=== PATIENT | male | born 1950 | race Caucasian/White ===

== ENCOUNTER 2023-08-01 14:19 | Emergency (ER) | payer MEDICARE, SELFPAY ==
[2023-08-01] VITALS (7 sets, daily range): BP systolic 128–169; BP diastolic 81–95; PULSE 65–99; RESP 13–22; TEMP 36.6; O2SAT 92–97
--- NOTE | 2023-08-01 14:21 | ECG_ITS ---
[facility] [address] Test Date: 2023-08-01 Pat Name: Oscar Sanders Department: Room: Gender: M Rating Specialist: Ramez : 1950 Requested By: Lukasz Reese Order Number: [id number] Cindy MD: Jose Walker D.O. Measurements Intervals [place] Rate: 70 P: 7 LA: 171 QRS: 26 QRSD: 145 T: 26 QT: 378 QTc: 408 Interpretive Statements SINUS RHYTHM RIGHT BUNDLE BRANCH BLOCK BASELINE ARTIFACT- I, II, III, AVR, AVL, AVF ABNORMAL ECG No previous ECG available for comparison Electronically Signed On 08-02-2023 09:21:52 CDT by Jose Walker D.O.
--- NOTE | 2023-08-01 14:37 | ED.CHESTPAIN ---
HPI - Chest Pain General Chief Complaint: Chest Pain Stated Complaint: cp Time Seen by Provider: 08/01/23 14:21 History of Present Illness HPI narrative: 73-year-old male presenting to the emergency department for evaluation chest pain. Patient reports he went to bed approximately midnight last night and woke up around 130 with substernal chest pain. Patient states the pain has significantly improved. Patient describes the pain is more epigastric at this time. Patient denies the radiation of the pain to his neck back or arms. Patient has prior history coronary disease. Related Data Allergies Allergy/AdvReac Type Severity Reaction Status Date / Time No Known Drug Allergies Allergy Unknown Other Unverified 08/01/23 14:51 Cultivated Oat Pollen Allergy Unknown Rash Uncoded 08/01/23 14:51 Review of Systems Review of Systems: All systems reviewed & are unremarkable except as noted in HPI and below Exam Narrative: APPEARANCE: Well appearing, no pain, no distress, well-nourished. HEAD: normocephalic, atraumatic. EYES: PERRLA/EOMI, conjunctivae clear. NOSE: Normal no drainage EARS:TMS clear with good light reflex. THROAT: Pharynx clear, no exudate. NECK: Supple. No adenopathy, no masses. RESPIRATORY: Airway patent, respirations nonlabored. Clear to auscultation bilaterally, no rales, rhonchi, wheezing. CARDIOVASCULAR: Regular rate and rhythm without murmurs rubs or gallops. ABDOMINAL: Epigastric tenderness to palpation MUSCULOSKELETAL: Moves all extremities. Strength/ROM intact, No edema, No calf tenderness. NEURO: Alert. Cranial nerves II through XII intact. Grossly intact SKIN: Warm, dry. Normal Color Course Vital Signs Vital signs: Vital Signs Temperature 97.8 F 08/01/23 14:19 Pulse Rate 99 08/01/23 14:19 Respiratory Rate 22 H 08/01/23 14:19 Blood Pressure 141/94 H 08/01/23 14:19 Pulse Oximetry 97 08/01/23 14:19 Oxygen Delivery Room Air 08/01/23 14:19 Temperature 97.8 F 08/01/23 14:19 Pulse Rate 65 08/01/23 17:51 Respiratory Rate 14 08/01/23 17:51 Blood Pressure 169/95 H 08/01/23 17:51 Pulse Oximetry 92 08/01/23 17:51 Oxygen Delivery Room Air 08/01/23 14:19 MDM - Chest Pain MDM Narrative Medical decision making narrative: [age] old male presents to the emergency department for evaluation of epigastric pain. Patient is afebrile but does have a leukocytosis of 12.4. Stable hemoglobin of 16.4. No acute abnormalities on the patient's CMP patient had negative serial troponins. Patient had negative lipase. Patient reports he did have a large dinner last night and patient's symptoms started after lying down. With negative cardiac workup epigastric location the patient's pain GI etiology is more likely than ACS. Differential Diagnosis Differential diagnosis: Likely stable angina, atypical chest pain, costochondritis, chest pain and biliary colic Lab Data 08/01/23 14:30 08/01/23 14:30 Labs: Lab Results 08/01/23 08/01/23 08/01/23 Range/Units 14:30 14:32 17:32 WBC 12.4 H (4.5-10.0) K/mm3 RBC 5.32 (4.6-6.20) M/mm3 Hgb 16.4 (14.0-18.0) g/dL Hct 49.4 (42.0-52.0) % MCV 92.9 (80-100) fl MCH 30.8 (26-34) pg MCHC 33.2 (32-36) g/dl RDW 13.1 (11.5-14.5) % Plt Count 238 (150-375) k/mm3 MPV 10.6 H (7.4-10.4) fl Immature Gran % (Auto) 0.8 H (0-0.5) % Neut % (Auto) 83.0 H (45.5-73.1) % Lymph % (Auto) 11.1 L (18.3-44.2) % [place] % (Auto) 4.4 (2.6-8.5) % Eos % (Auto) 0.2 (0-4.4) % Baso % (Auto) 0.5 (0.2-1.2) % Lymph # (Auto) 1.38 (0.9-3.2) K/mm3 [place] # (Auto) 0.6 (0.1-0.6) K/mm3 Eos # (Auto) 0.0 (0-0.3) K/mm3 Baso # (Auto) 0.1 (0.0-0.1) K/mm3 Abs Immat Gran (auto) 0.10 H (0.00-0.031) K/mm3 Absolute Neuts (auto) 10.3 H (1.3-6.7) K/mm3 Absolute Nucleated RBC 0.000 (0.0-0.012) K/mm3 Nucleated RBC % 0.0 (0.0-0.2) % PT 13.0
[2023-08-01 14:43] LABS: Basophils Absolute Auto 0.1 K/mm3 (0.0-0.1); Basophils Percent Auto 0.5 % (0.2-1.2); Eosinophils Percent Auto 0.2 % (0-4.4); Hematocrit 49.4 % (42.0-52.0); Hemoglobin 16.4 g/dL (14.0-18.0); Immature Granulocyte Percent A 0.8 % (0-0.5); Lymphocytes Absolute Auto 1.38 K/mm3 (0.9-3.2); Lymphocytes Percent Auto 11.1 % (18.3-44.2); Mean Corpuscular HGB Conc 33.2 g/dl (32-36); Mean Corpuscular Hemoglobin 30.8 pg (26-34); Mean Corpuscular Volume 92.9 fl (80-100); Mean Platelet Volume 10.6 fl (7.4-10.4); Monocytes Absolute Auto 0.6 K/mm3 (0.1-0.6); Monocytes Percent Auto 4.4 % (2.6-8.5); Neutrophils Absolute Auto 10.3 K/mm3 (1.3-6.7); Platelet Count Result 238 k/mm3 (150-375); Red Blood Count 5.32 M/mm3 (4.6-6.20); Red Cell Distribution Width 13.1 % (11.5-14.5); White Blood Count 12.4 K/mm3 (4.5-10.0)
[2023-08-01 14:49] LABS: INR 0.9
[2023-08-01 14:50] LABS: Alanine Aminotransferase 25 U/L (6-50); Albumin Level 4.6 g/dL (3.5-5.1); Alkaline Phosphatase 56 U/L (38-126); Anion Gap 12 mmol/L (4-12); Aspartate Amino Transferase 30 U/L (17-59); Bilirubin,Total 0.8 mg/dL (0.2-1.3); Blood Urea Nitrogen 17 mg/dL (9-20); Calcium 10.9 mg/dL (8.4-10.2); Carbon Dioxide 27 mmol/L (22-30); Chloride 98 mmol/L (98-107); Estimated CRCL calculation 93 ml/min; Estimated Glomerular Filt Rate > 60; Glucose 163 mg/dL (65-110); Potassium 3.9 mmol/L (3.4-5.0); Sodium 137 mmol/L (137-145)
[2023-08-01 14:50] LABS: Partial Thromboplastin Time 30.2 Seconds (22.3-36.8)
[2023-08-01] MEDS: BELLADONNA ALK/PHENOB ELIX 10 ML, MAG HYDROX/ALUMINUM HYD/SIMETH 30 ML, LIDOCAINE HCL 2... PO (14:51)
[2023-08-01] MEDS: MORPHINE SULFATE (*CRX) 2 MG/ML INJ IV PUSH (14:51)
[2023-08-01 15:02] LABS: Troponin I < 0.012 ng/mL (0.000-0.034)
[2023-08-01 16:21] LABS: Lipase 72 U/L (23-300)
--- NOTE | 2023-08-01 16:30 | ECG_ITS ---
[facility] [address] Test Date: 2023-08-01 Pat Name: Oscar Sanders Department: Room: Gender: M Teletype Or Varitype Keyboard Operator: GUY : 1950 Requested By: Lukasz Reese Order Number: [id number] Cindy MD: Jose Walker D.O. Measurements Intervals [place] Rate: 68 P: 47 [place]: 154 QRS: 32 QRSD: 144 T: 32 QT: 389 QTc: 415 Interpretive Statements SINUS RHYTHM WITH SINUS ARRHYTHMIA RIGHT BUNDLE BRANCH BLOCK ABNORMAL ECG Compared to ECG 08/01/2023 16:29:11 No significant changes Electronically Signed On 08-02-2023 09:22:47 CDT by Jose Walker D.O.
[2023-08-01 18:06] LABS: Troponin I < 0.012 ng/mL (0.000-0.034)
== END 2023-08-01 18:39 | disposition home or self-care (01) ==
PROVIDERS: Emergency Provider Emergency Medicine; PCP Family Medicine
DX: R07.9 Chest pain, unspecified (principal); R10.13 Epigastric pain; I45.10 Unspecified right bundle-branch block
CPT/HCPCS: 36415; 80053; 83690; 84484; 85025; 85610; 85730; 93005; 96374; 99284; A9270; J2270

== ENCOUNTER 2024-02-21 06:57 | Day surgery (SDC) | payer MEDICARE, SELFPAY ==
[2024-01-03 07:17] VITALS: BMI 34.2
[2024-02-04 13:47] VITALS: BMI 35.2
--- NOTE | 2024-02-20 15:05 | WPDANESEPPF ---
Anes - Initial Pre Proc Eval Procedure: Operation Date: 02/21/24 09:00 Proposed Procedures p Screening Colonoscopy - Len De Leon MD Date/Time: 02/20/24 15:05 Surgeon: Len De Leon MD Pre Op Diagnosis: Screening Neoplasm of the Colon Patient Data Age: 73 Gender: M Height: 1.78 m Weight: 111.3 kg Allergies Allergy/AdvReac Type Severity Reaction Status Date / Time No Known Drug Allergies Allergy Unknown Other Verified 02/21/24 07:39 Cultivated Oat Pollen Allergy Unknown Rash Uncoded 02/21/24 07:39 Home Medications ?Medication ?Instructions ?Recorded ?Confirmed ?Type lisinopril 10 mg tablet 10 mg PO DAILY 12/11/23 02/21/24 History metformin 1,000 mg tablet 1,000 mg PO BID 12/11/23 02/21/24 History vitamin E (dl, acetate) 180 mg 180 mg PO WEEKLY 12/11/23 02/21/24 History (400 unit) capsule allopurinol 100 mg tablet 100 mg PO DAILY 02/04/24 02/21/24 History escitalopram oxalate 10 mg tablet 10 mg PO DAILY 02/04/24 02/21/24 History Patient hx anesthesia problems: none Family hx anesthesia problems: none Results Review: All pre-operative results and documents have been reviewed as part of the pre-operative evaluation. [facility] Past Medical History Medical History (Updated 02/20/24 @ 15:05 by Paulie Toledo DO) Diabetes type 2, controlled LAURIE (obstructive sleep apnea) Hyperlipidemia Hypertension Diarrhea Encounter for screening colonoscopy Social History Social History Smoking status: Former smoker Tobacco type: cigars Alcohol intake: current Drinks per week: 4 Alcohol use details: beer Substance use type: does not use Living arrangements: with family Spiritual care concerns: No Anes - Eval Final PreProcedure Day of Procedure 02/20/24 15:05 Patient weight: obese Heart: regular rate and rhythm Lungs: clear to auscultation Airway: Mallampati scale class II Neurological: alert and oriented Last oral intake: >/= 8 hours ASA classification: III Emergent: no Anesthetic plan: proceed Anesthesia type and monitoring: general GIVS and standard monitoring Results Review: All pre-operative results and documents have been reviewed as part of the pre-operative evaluation. Informed Consent: The patient's anesthetic plan and its attendant risks and benefits were discussed with the patient/family/POA. Questions were solicited and answers provided to the satisfaction of the patient/family/POA.
[2024-02-21 07:42] VITALS: BP 134/76; PULSE 86; RESP 18; TEMP 36.8; O2SAT 98
[2024-02-21 08:03] LABS: Glucose Point of Care 97 mg/dl (65-105)
[2024-02-21] MEDS: LACTATED RINGERS 1,000 ML 150 ML IV CONT (08:04)
--- NOTE | 2024-02-21 08:10 | P.HP_ITS ---
History of Present Illness History of Present Illness Consent: Risks, benefits, and alternatives have been discussed and questions answered. Patient agrees to proceed with procedure. Chief complaint: Screening Neoplasm of the Colon Narrative: Oscar Sanders is a 73 year old male presents for screening colonoscopy. Patient's current weight appetite and bowel movements are normal. Patient denies abdominal pain. He has had no bleeding. Family history is nonco ntributory. Previous colonoscopy 10 years ago was unremarkable. Review of Systems Review of Systems: All systems reviewed & are unremarkable except as noted in HPI and below PMFSH Past Medical History Medical History (Updated 02/20/24 @ 15:05 by Paulie Toledo, DO) Diabetes type 2, controlled LAURIE (obstructive sleep apnea) Hyperlipidemia Hypertension Diarrhea Encounter for screening colonoscopy Social History Social History Smoking status: Former smoker Tobacco type: cigars Alcohol intake: current Drinks per week: 4 Alcohol use details: beer Substance use type: does not use Living arrangements: with family Spiritual care concerns: No Meds Home Medications and Allergies Home Medications ?Medication ?Instructions ?Recorded ?Confirmed ?Type lisinopril 10 mg tablet 10 mg PO DAILY 12/11/23 02/21/24 History metformin 1,000 mg tablet 1,000 mg PO BID 12/11/23 02/21/24 History vitamin E (dl, acetate) 180 mg 180 mg PO WEEKLY 12/11/23 02/21/24 History (400 unit) capsule allopurinol 100 mg tablet 100 mg PO DAILY 02/04/24 02/21/24 History escitalopram oxalate 10 mg tablet 10 mg PO DAILY 02/04/24 02/21/24 History Allergies Allergy/AdvReac Type Severity Reaction Status Date / Time No Known Drug Allergies Allergy Unknown Other Verified 02/21/24 07:39 Cultivated Oat Pollen Allergy Unknown Rash Uncoded 02/21/24 07:39 Vital Signs Vital Signs - 24 hr 02/21/24 07:42 Temperature 98.3 F Pulse Rate 86 Respiratory Rate 18 Blood Pressure 134/76 Pulse Oximetry 98 Oxygen Delivery Room Air Exam Narrative: Physical exam reveals patient to be alert. Vital signs stable. VERONICA is unre markable. Patient is anicteric. Lungs are clear to auscultation and percussion heart is without murmur or extra sounds. Abdomen bowel sounds are present soft nontender with no organomegaly. Digital external rectal exam normal. Assessment and Plan Assessment and plan (1) Encounter for screening colonoscopy: Code(s): Z12.11 - Encounter for screening for malignant neoplasm of colon Status: Acute Assessment and Plan: Patient presents today for screening colonoscopy. He appears be at average risk for colon polyps. Further recommendations may be given after endoscopy.
[2024-02-21 09:08] VITALS: BP 107/60; PULSE 80; RESP 17; O2SAT 95
[2024-02-21 09:18] VITALS: BP 112/68; PULSE 82; RESP 18; O2SAT 97
[2024-02-21 09:28] VITALS: BP 113/85; PULSE 79; RESP 18; O2SAT 97
--- NOTE | 2024-02-21 10:44 | WPDANESPN ---
Anes - Prog Note Post-Op Date/Time: 02/21/24 10:44 Cardiovascular status: normal Respiratory status: normal Airway patency: baseline Mental status: baseline Post-Op hydration status: normal Vital Signs: Last Vital Signs Temp 36.8 C 02/21/24 07:42 Pulse 79 02/21/24 09:28 Resp 18 02/21/24 09:28 BP 113/85 02/21/24 09:28 Pulse Ox 97 02/21/24 09:28 O2 Del Method Room Air 02/21/24 09:28 Pain Score (VAS): 0 I/O: Intake & Output 02/20/24 02/21/24 02/21/24 23:59 07:59 15:59 Intake Total 250 Balance 250 02/21/24 07:58 POC Capillary Glucose 97 Post-procedural complaints: none Patient Feedback: Patient satisfied with anesthetic care. Other Findings: Patient vital signs back to baseline. Patient denies nausea and vomiting. Patient's pain under control. Patient OK for discharge.
== END 2024-02-21 09:45 | disposition home or self-care (01) ==
PROVIDERS: PCP Family Medicine; Visit Provider Internal Medicine Gastroenterology
PROC: 0DJD8ZZ Inspection of Lower Intestinal Tract, Via Natural or Artificial Opening Endoscopic (ICD-10-PCS; CPT 45378; principal; 2024-02-21 09:00)
DX: Z12.11 Encounter for screening for malignant neoplasm of colon (principal); K57.30 Diverticulosis of large intestine without perforation or abscess without bleeding; K64.8 Other hemorrhoids
CPT/HCPCS: G0121

== ENCOUNTER 2024-09-22 06:52 | Inpatient (IN) | payer MEDICARE, SELFPAY ==
[2024-09-22] VITALS (10 sets, daily range): BP systolic 145–153; BP diastolic 64–97; PULSE 64–91; RESP 16–20; TEMP 36.2–36.7; O2SAT 93–99; BMI 35.8
--- NOTE | 2024-09-22 | ECHO_ITS ---
Patient Info Name: Oscar Sanders Age: 74 years : 1950 Gender: Male Ht: 70 in Wt: 249 lbs BSA: 2.40 m2 HR: 68 bpm BP: 151 / 86 mmHg Technical Quality: Fair Exam Date: 09/22/2024 1:42 PM Patient Status: I Admit Date: 09/22/2024 Exam Type: CA echo dop color flow w con Complete two-dimensional, color flow and Doppler transthoracic echocardiogram is performed with contrast to opacify the left ventricle and to improve the deliniation of the left ventricle endocardial borders. Staff Referring Physician: Erika Stone Thermograph Operator: Janee Mar Attending Provider: Vania Prabhakar MD Contrast/Agitated Saline Contrast/Ag. Saline: Definity Amount: 2.00 ml Administered By: Janee Mar Existing IV Access: Yes IV Access Condition: patent with no signs of infiltration Summary 1. There is normal biventricular size and systolic function. 2. There are no significant valvular abnormalities. 3. The aortic root at the level of the sinus of Valsalva is dilated measuring 4.2 cm in diameter. Left Ventricle The left ventricle is normal in size and systolic function. The left ventricular ejection fraction is visually estimated to be 60-65%. There are no regional wall motion abnormalities. Right Ventricle The right ventricle is normal in size and systolic function. Left Atria The left atrium is normal size. Right Atria The right atrium is normal size. Atrial Septum The atrial septum is not well visualized. Aortic Valve The aortic valve is trileaflet and sclerotic. There is no aortic stenosis. There is no aortic regurgitation. Pulmonic Valve The pulmonic valve is not well visualized. Mitral Valve The mitral valve is normal. There is no mitral regurgitation. Tricuspid Valve The tricuspid valve is normal. There is trace tricuspid regurgitation. Pericardium/Pleural Pericardium is normal in appearance with no evidence for significant pericardial effusion. Inferior Vena Cava Inferior vena cava is not well visualized. Aorta The aortic root at the level of the sinus of Valsalva is dilated measuring 4.2 cm in diameter. Left Ventricular Outflow Tract Name Value Normal LVOT 2D LVOT Diameter 2.5 cm LVOT Doppler LVOT Peak Velocity 112 cm/s LVOT Peak Gradient 5 mmHg LVOT Mean Gradient 3 mmHg LVOT VTI 27 cm LVOT VTI/AV VTI Ratio 0.8 LVOT Stroke Volume 133 ml LVOT CO 8.0 l/min LVOT CI 3.3 l/min/m2 Pulmonic Valve Name Value Normal PV Doppler PV Peak Velocity 94 cm/s PV Peak Gradient 4 mmHg Mitral Valve Name Value Normal MV Diastolic Function MV E Peak Velocity 79 cm/s MV A Peak Velocity 108 cm/s MV E/A 0.7 MV Decel Time (PW) 308 ms MV Annular TDI MV E/e' (Septal) 7.0 MV E/e' (Lateral) 5.7 MV E/e' (Average) 6.4 Tricuspid Valve Name Value Normal TV Regurgitation Doppler TR Peak Velocity 149 cm/s TR Peak Gradient 9 mmHg Estimated PAP/RSVP RA Pressure 10 mmHg <=5 PA Systolic Pressure 19 mmHg <36 RV Systolic Pressure 19 mmHg <36 TV Annular TDI TV Lateral Clementina s' Velocity 13.9 cm/s >=9.5 Aortic Valve Name Value Normal AV Doppler AV Peak Velocity 144 cm/s AV Peak Gradient 8 mmHg AV Mean Gradient 5 mmHg AV VTI 32 cm AV Area (Cont Eq VTI) 4.1 cm2 >=3.0 AV Area (Cont Eq Luis) 3.8 cm2 AV DI (Luis) 0.78 AV Regurgitation 2D LVOT Area 4.9 cm2 Ventricles Name Value Normal LV Dimensions 2D/MM IVS Diastolic Thickness (2D) 1.0 cm 0.6-1.0 LVID Diastole (2D) 4.9 cm 4.2-5.8 LVIW Diastolic Thickness (2D) 1.0 cm 0.6-1.0 LVID Systole (2D) 3.3 cm 2.5-4.0 LVOT Diameter 2.5 cm LV Mass (2D Cubed) 176.05 g 88.00-224.00 LV Mass Index (2D Cubed) 73 g/m2 49-115 Relative Wall Thickness (2D) 0.40 <=0.42 LV Fractional Shortening/Ejection Fraction 2D/MM LV Fractional Shortening (2D) 33 % 25-43 LV EF (2D Teichholz) 61 % LV Diastolic Volume (4C MOD) 156 ml LV EF (4C MOD) 73 % LV Diastolic Volume (2C MOD) 123 ml LV EF (2C MOD) 70 % LV Diastolic Volume (BP MOD) 142 ml 62-150 LV Diastolic Volume Index (BP MOD) 59 ml/m2 34-74 LV Systolic Volume (BP MOD) 40 ml 21-61 LV Systolic Volume Index (BP MOD) 17 ml/m2 11-31 LV EF (BP MOD) 72 % 52-72 LV Diastolic Length (4C) 9.7 cm LV Systolic Length (4C) 7.6 cm LV Stroke Volume (4C MOD) 113 ml Atria Name Value Normal LA Dimensions LA Volume (4C A-L) 42 ml LA Volume (BP A-L) 44 ml RA Dimensions RA Systolic Major Theresa Length (4C) 5.1 cm 2.1-2.7 RA Area (4C) 16.2 cm2 <=18.0 Report Signatures
--- NOTE | ~2024-09-22 | US_ITS ---
US abdomen limited INDICATION: Cholelithiasis PROCEDURE: Realtime right upper abdominal ultrasound. COMPARISON: CT dated 11/25/2013 FINDINGS: The pancreas is normal without focal mass or pancreatic ductal dilation. Liver echotexture is increased, consistent with fatty infiltration. There is normal directional flow in the portal ve in. Incidental note is made of cysts in the right kidney. Gallbladder contains stones with gallbladder wall thickening. No pericholecystic fluid or biliary dil atation. Common bile duct measures 5 mm. No sonographic Calhoun's sign. IMPRESSION: 1: Cholelithiasis with gallbladder wall thickening. Consider cholecystitis. Clinically correlate. Reviewed, dictated and finalized at location A. IMPRESSION: 1: Cholelithiasis with gallbladder wall thickening. Consider cholecystitis. Cli nically correlate.
--- NOTE | ~2024-09-22 | CT_ITS ---
EXAMINATION: CTA chest PE protocol DATE: 09/22/2024 8:23 CDT INDICATION: Chest pain. Elevated d-dimer. Mild lower extremity edema. TECHNIQUE: Computed tomographic angiography (CTA) of the chest was performed with 100 mL Omnipaque-35 0 intravenous contrast. The dose-length product was 825.72 mGy-cm. Maximum intensity projection 3D-re constructions of the aorta and other arteries were constructed by the technologist on a separate work station. Automated exposure control and iterative reconstruction technique were employed. COMPARISON: None. FINDINGS: Study is technically adequate without evidence for pulmonary embolism. Elevated right diaph ragm. No significant pleural or pericardial effusion. No thoracic lymphadenopathy. There are gallston es. There is dependent atelectasis. There are groundglass opacities scattered in both lungs. No pneum othorax. Mild thoracic spondylosis. No thoracic lymphadenopathy. IMPRESSION: 1. No evidence for pulmonary embolism. 2: Patchy groundglass opacities of the lungs. Differential diagnosis includes atypical pneumonia, mil d edema and hypersensitivity pneumonitis. 3: Cholelithiasis. Reviewed, dictated and finalized at location A. IMPRESSION: 1. No evidence for pulmonary embolism. 2: Patchy groundglass opacities of the lungs. Differential diagnosis includes a typical pneumonia, mild edema and hypersensitivity pneumonitis. 3: Cholelithiasis.
--- NOTE | ~2024-09-22 | XR_ITS ---
EXAMINATION: XR chest 2V 09/22/2024 07:55 INDICATION: Chest pain PROCEDURE: 2 view chest COMPARISON: 11/26/2013 FINDINGS: There is unchanged right basilar atelectasis/scarring. No focal pneumonia or edema. The car diomediastinal silhouette is within normal limits. There are no pleural effusions. There is no pneu mothorax suspected. IMPRESSION: 1: NO ACUTE CARDIOPULMONARY DISEASE. Reviewed, dictated and finalized at location A.
--- NOTE | ~2024-09-22 | NM_ITS ---
EXAMINATION: NM meliza stress w perfusion DATE: 09/24/2024 9:40 CDT INDICATION: Chest pain TECHNIQUE: Rest images were obtained following intravenous administration of 9.9 mCi Tc99m tetrofosmi n (Myoview). The patient was infused intravenously with Lexiscan (regadenoson). Then, 31.4 mCi Tc99m tetrofosmin (Myoview) was administered intravenously, and stress images were obtained. Data was recon structed into short axis and horizontal and vertical long axis SPECT images. Gated SPECT images were also obtained. COMPARISON: None. FINDINGS: There is a small lateral ventricular wall perfusion abnormality which is partially reversib le.. There is no segmental wall motion abnormality. Left ventricular ejection fraction measures 78% . IMPRESSION: 1. Small lateral ventricular wall abnormality, partially reversible, consistent with small infarction with Impaired Coronary flow reserve.. 2. Normal left ventricular ejection fraction measuring 78%. Reviewed, dictated and finalized at location A.
--- OUTSIDE RECORDS SUMMARY | 2024-09-22 06:55 | XMS_ITS | Clinical Summary ---
Author Organization [facility] Address [address] [place] [id number] Care Team Providers Care Polysomnographic Technician Name Role Phone Unavailable Primary Care Provider Unavailabl e Social History Tobacco Use Types Packs/Day Years Used Date Smoking Tobacco: Never Assessed Sex and Gender Information Value Date Recorded Sex Assigned at Not on file Legal Sex Male 7:01 PM CDT Gender Identity Not on file Sexual Orientation Not on file Plan of Treatment Health Maintenance Due Date Last Done Comments Colorectal Cancer Screening Colonoscopy (10 Years) 1950 Hepatitis C 1967 DTaP, Tdap and Td Vaccines ( 1 - Tdap) 1968 Pneumococcal Vaccine: 50+ Ye ars (1 of 1 - PCV) 1999 Zoster Vaccines (1 of 2) 1999 COVID-19 Vaccine ( - 2023-2 5 season) 2023 RSV Immunization or 60+ Years (1 - 1-dose 75+ series) 2024 Meningococcal B Vaccine Aged Out No l onger eligible based on patient's age to complete this topic Meningococcal Vaccine Aged Out No nikki gilmer eligible based on patient's age to complete this topic RSV Immunizations Under 20 Months Aged Out No longer eligible based on patient's age to complete this topic
--- NOTE | 2024-09-22 06:56 | ECG_ITS ---
Test Date: 2024-09-22 07:00:49 Measurements Intervals [place] Rate: 67 P: 23 [place]: 170 QRS: 20 QRSD: 138 T: 43 QT: 408 QTc: 432 Interpretive Statements SINUS RHYTHM RIGHT BUNDLE BRANCH BLOCK [120+ ms QRS DURATION, UPRIGHT V1, 40+ ms S IN I/aVL/V4/V5/V6] Compared to ECG 08/01/2023 17:41:35 Sinus arrhythmia no longer present Electronically Signed On 09-22-2024 11:25:28 CDT by Daniel Jin M.D.
--- OUTSIDE RECORDS SUMMARY | 2024-09-22 07:24 | XMS_ITS | Clinical Summary ---
Author Organization [facility] Address [address] [place] [id number] Care Team Providers Care Inside Sales Account Executive Name Role Phone Unavailable Primary Care Provider [...]
--- NOTE | 2024-09-22 07:26 | ED_ITS ---
HPI - Chest Pain General Chief Complaint: Chest Pain Stated Complaint: chest pain Time Seen by Provider: 09/22/24 07:07 Source: patient Mode of arrival: ambulatory Limitations: no limitations History of Present Illness HPI narrative: Patient presents with report of right-sided chest started overnight. He is not really been able to sleep overnight. There was initial notation nausea however he states was not quite nauseated only that has a lot of pollen dust allergies in this causes him to spit up/cough up occasionally. Was is in though, he denies any recent coughing fevers, chills. He states that he gets short of breath due to his arthritis that causes some pain difficulty with climbing stairs although he does not note any acute changes to the in regards to his shortness of breath. The symptoms have otherwise never happened before and he has never seen a kettle operator, had an echo, or had a stress test. He states his pain is still approximately a 4/10 in severity and steady. Notes that the pain seemed to move across his upper chest but then remained there. Cardiac risk factors HTN: Yes, on lisinopril HLD: Patient denies and not on a statin (though HLD listed in PMH of EMR) DM: Patient states he is on metformin for borderline diabetes; listed in PMH of EMR as controlled T2DM Obese: Yes Smoker: quit >50 years ago Personal history IN/TIA/CVA: Patient states that his PCP thought he was on the cusp of having a stroke based on HTN at office once for which he was sent to the ED but no CVA identified Fam Hx IN in first degree relative <65yo: No Related Data Home Medications ?Medication ?Instructions ?Recorded ?Confirmed ?Last Taken ?Type lisinopril 10 mg tablet 10 mg PO DAILY 12/11/23 02/21/24 02/20/24 History metformin 1,000 mg tablet 1,000 mg PO BID 12/11/23 02/21/24 02/20/24 History vitamin E (dl, acetate) 180 mg 180 mg PO WEEKLY 12/11/23 02/21/24 02/20/24 History (400 unit) capsule allopurinol 100 mg tablet 100 mg PO DAILY 02/04/24 02/21/24 02/20/24 History escitalopram oxalate 10 mg tablet 10 mg PO DAILY 02/04/24 02/21/24 02/20/24 History Allergies Allergy/AdvReac Type Severity Reaction Status Date / Time No Known Drug Allergies Allergy Unknown Other Verified 09/22/24 07:25 Cultivated Oat Pollen Allergy Unknown Rash Uncoded 09/22/24 07:25 PMFSH Past Medical History Medical History Allergy to dust Pollen allergies Arthritis Diabetes type 2, controlled LAURIE (obstructive sleep apnea) Hyperlipidemia Hypertension Diarrhea Surgical History Surgical History History of colonoscopy (screening); Dr De Leon; 02/21/24 Social History Social History Social History: Smoking status: Former smoker Tobacco type: cigars Smoking end date: 09/02/74 Alcohol intake: current Drinks per week: 4 Alcohol use details: beer Substance use type: does not use Living arrangements: with family Additional living arrangements comments: Spiritual care concerns: No Exam 2 Narrative: GENERAL: Well-appearing, well-nourished, and in no acute distress. HEAD: Normocephalic, atraumatic. EYES: Non injected, non icteric ENT: Nares clear, no rhinorrhea or epistaxis. Gross auditory acuity intact. Nasal skin lesion. NECK: Supple. No meningismus. CHEST: Speaking in full sentences. No respiratory distress. Lungs clear to auscultation without appreciable crackles or wheezes. HEART: Regular rate and rhythm. Occasional mild bradycardia (55-59) ABDOMEN: Soft, nondistended. EXTREMITIES: Normal range of motion. Trace bilateral lower extremity edema. SKIN: Warm, dry, no rash. NEURO: No focal deficits. Alert and oriented. Answering questions. Following commands. Normal speech without aphasia or dysarthria. PSYCH: Congruent mood and affect. Course Vital Signs Vital signs: Vital Signs Temperature 98.0 F 09/22/24 07:19 Pulse Rate 71 09/22/24 07:19 Respiratory Rate 16 09/22/24 07:19 Blood Pressure 150/86 H 09/22/24 07:19 Pulse Oximetry 99 09/22/24 07:19 Oxygen Delivery Room Air 09/22/24 07:19 Temperature 98.0 F 09/22/24 07:19 Pulse Rate 71 09/22/24 09:08 Respiratory Rate 16 09/22/24 09:08 Blood Pressure 151/97 H 09/22/24 09:08 Pulse Oximetry 96 09/22/24 09:08 Oxygen Delivery Room Air 09/22/24 07:22 MDM - Chest Pain MDM Narrative Medical decision making narrative: Patient presents with chest pain starting overnight. In the emergency department he is afebrile vital signs notable for hypertension. HEART SCORE History 2 highly suspicious 1 moderately suspicious 0 slightly suspicious History score [address] depression/elevation not due to LBBB, LVH, or digoxin [address] depression but LBBB, LVH, nonspecific repolarization changes 0 normal ECG score 0 Age 2 >/= 65 1 45-64 0 <45 Age score 2 Risk factors (HTN, hypercholesterolemia, DM, obesity with BMI >30, current smoker or cessation </=3mo), positive fam hx with parent or sibling with CVD before age 65, atherosclerotic disease (prior IN, PCI/CABG, CVA/TIA, or peripheral arterial disease) 2 >/= 3 risk factors or history of atherosclerotic dz 1 - 1-2 risk factors 0 no known risk factors Risk factor score 2 (HTN, obesity, questionable DM and HLD) Initial Troponin 2 >3 times normal limit 1 1-3 times normal limit 0 less than or equal to normal limit Troponin score 0 Total HEART Score 4 Hemoglobin has dropped from previous in July of 2023 though hematocrit remains within normal limits. Mild hyperglycemia without an anion gap and not frankly acidotic. Pseudo hyponatremia as it corrects to normal (137) in the setting hyperglycemia. BNP 38, not suggestive of acute heart failure. CT scan without evidence of PE. There is patchy ground-glass opacities. Out of an abundance of precaution, will treat as pneumonia versus pneumonitis. First dose ceftriaxone and azithromycin ordered. Patient's repeat troponin is normal. However, given his heart score, I would recommend admission for further workup especially as he has never had a cardiac workup and does not have a kettle operator. Discussed with patient who verifies understanding and is in agreement. Discussed with sleeve ironer hospitalist Dr Prabhakar who concurs and accepts admission. Differential Diagnosis Differential diagnosis: Likely stable angina, unstable angina pectoris, atypical chest pain, st elevation myocardial infarction, costochondritis, chest pain, biliary colic and other (Acute heart failure, pneumonia, PE) Lab Data Attestation: I reviewed the patient's lab results. 09/22/24 07:24 09/22/24 07:24 Labs: Lab Results 09/22/24 09/22/24 09/22/24 Range/Units 07:24 07:24 09:50 WBC 9.5 (4.5-10.0) K/mm3 RBC 4.42 L (4.6-6.20) M/mm3 Hgb 13.8 L (14.0-18.0) g/dL Hct 42.1 (42.0-52.0) % MCV 95.2 (80-100) fl MCH 31.2 (26-34) pg MCHC 32.8 (32-36) g/dl RDW 13.4 (11.5-14.5) % Plt Count 225 (150-375) k/mm3 MPV 9.9 (7.4-10.4) fl Immature Gran % (Auto) 1.3 H (0-0.5) % Neut % (Auto) 69.1 (45.5-73.1) % Lymph % (Auto) 21.5 (18.3-44.2) % [place] % (Auto) 5.7 (2.6-8.5) % Eos % (Auto) 1.6 (0-4.4) % Baso % (Auto) 0.8 (0.2-1.2) % Lymph # (Auto) 2.05 (0.9-3.2) K/mm3 [place] # (Auto) 0.5 (0.1-0.6) K/mm3 Eos # (Auto) 0.2 (0-0.3) K/mm3 Baso # (Auto) 0.1 (0.0-0.1) K/mm3 Abs Immat Gran (auto) 0.12 H (0.00-0.031) K/mm3 Absolute Neuts (auto) 6.6 (1.3-6.7) K/mm3 Absolute Nucleated RBC 0.000 (0.0-0.012) K/mm3 Nucleated RBC % 0.0 (0.0-0.2) % PT 13.5 (11.1-14.7) Seconds INR 1.0 APTT 33.3 (22.3-36.8) Seconds D-Dimer 0.83 H (<0.48) ug/mL Sodium 136 L (137-145) mmol/L Potassium 4.6 (3.4-5.0) mmol/L Chloride 105 (98-107) mmol/L Carbon Dioxide 21 L (22-30) mmol/L Anion Gap 10 (4-12) mmol/L BUN 16 (9-20) mg/dL Creatinine 0.97 (0.7-1.3) mg/dL Estim Creat Clear Calc 78 ml/min Estimated GFR > 60 (59 - ) Glucose 157 H (65-110) mg/dL Calcium 9.9 (8.4-10.2) mg/dL Total Bilirubin 0.3 (0.2-1.3) mg/dL AST 33 (17-59) U/L ALT 29 (6-50) U/L Alkaline Phosphatase 51 (38-126) U/L Troponin I 0.012 < 0.012 (0.000-0.034) ng/mL NT-Pro-B Natriuret Pep 38 Cancelled (19.9-100) pg/mL Total Protein 7.4 (6.3-8.2) g/dL Albumin 4.0 (3.5-5.1) g/dL Lipase 128 (23-300) U/L Imaging Data Radiologist's impression: Impressions Chest X-Ray 09/22/24 07:56 IMPRESSION: 1: NO ACUTE CARDIOPULMONARY DISEASE. Chest CTA 09/22/24 08:23 IMPRESSION: 1. No evidence for pulmonary embolism. 2: Patchy groundglass opacities of the lungs. Differential diagnosis includes atypical pneumonia, mild edema and hypersensitivity pneumonitis. 3: Cholelithiasis. ECG Data EKG #1: Attestation: I personally reviewed and interpreted this ECG as follows: ECG completion date: 09/22/24 ECG completion time: 07:00 Prior ECG tracings: available for review (Right bundle-branch block was present on EKG from 08/01/2023) Interpretation: Normal sinus rhythm at a rate of 67 beats per minute. VA 1 7. QRS 138. QT/QTC 408/423. RBBB given QRS greater [id number]; RSR' M-shaped pattern in V1-V3; wide, slurred S wave in lateral leads (I, aVL, V5-6). Good R-wave progression across the precordial leads. No T-wave inversions. The appearance of V5 and V6 also similar as previous. EKG #2: Attestation: I personally reviewed and interpreted this ECG as follows: ECG completion date: 09/22/24 ECG completion time: 09:56 Interpretation: Normal sinus rhythm at a rate of 60 beats per minute. There is some R to R variation consistent with sinus arrhythmia. VA interval 164. QRS 145. QT/QTC 416/417. RBBB given QRS greater [id number]; RSR' M-shaped pattern in V1-V3; wide, slurred S wave in lateral leads (I, aVL, V5-6) Discharge Plan Discharge Clinical Impression: Chest pain, Hyperglycemia, Pseudohyponatremia, Cholelithiasis, Ground glass opacity present on imaging of lung Patient Disposition: Still a Patient Condition: Stable Patient Language: Citizen Of [place] Prescriptions: No Action lisinopril 10 mg tablet 10 mg PO DAILY metformin 1,000 mg tablet 1,000 mg PO BID vitamin E (dl, acetate) 180 mg (400 unit) capsule 180 mg PO WEEKLY allopurinol 100 mg tablet 100 mg PO DAILY escitalopram oxalate 10 mg tablet 10 mg PO DAILY Follow-up/Referrals: Claudio Holley MD [Primary Care Provider] -
--- NOTE | 2024-09-22 07:30 | PC.NURSE ---
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
[2024-09-22 07:32] LABS: Hematocrit 42.1 % (42.0-52.0); Hemoglobin 13.8 g/dL (14.0-18.0); Immature Granulocyte Percent A 1.3 % (0-0.5); Lymphocytes Absolute Auto 2.05 K/mm3 (0.9-3.2); Mean Corpuscular HGB Conc 32.8 g/dl (32-36); Mean Corpuscular Hemoglobin 31.2 pg (26-34); Mean Corpuscular Volume 95.2 fl (80-100); Nucleated Red Blood Cells Absolute Auto 0.000 K/mm3 (0.0-0.012); Nucleated Red Blood Cells Perc 0.0 % (0.0-0.2); Platelet Count Result 225 k/mm3 (150-375); Red Blood Count 4.42 M/mm3 (4.6-6.20); White Blood Count 9.5 K/mm3 (4.5-10.0)
[2024-09-22 07:46] LABS: INR 1.0; Prothrombin Time 13.5 Seconds (11.1-14.7)
[2024-09-22 07:47] LABS: Alanine Aminotransferase 29 U/L (6-50); Albumin Level 4.0 g/dL (3.5-5.1); Alkaline Phosphatase 51 U/L (38-126); Anion Gap 10 mmol/L (4-12); Aspartate Amino Transferase 33 U/L (17-59); Bilirubin,Total 0.3 mg/dL (0.2-1.3); Blood Urea Nitrogen 16 mg/dL (9-20); Calcium 9.9 mg/dL (8.4-10.2); Carbon Dioxide 21 mmol/L (22-30); Chloride 105 mmol/L (98-107); Estimated CRCL calculation 78 ml/min; Estimated Glomerular Filt Rate > 60; Glucose 157 mg/dL (65-110); Lipase 128 U/L (23-300); Partial Thromboplastin Time 33.3 Seconds (22.3-36.8); Potassium 4.6 mmol/L (3.4-5.0); Sodium 136 mmol/L (137-145); Total Protein 7.4 g/dL (6.3-8.2)
[2024-09-22 07:59] LABS: Troponin I 0.012 ng/mL (0.000-0.034)
[2024-09-22 08:43] LABS: NT Pro B Type Natriuretic Pept 38 pg/mL (19.9-100)
[2024-09-22] MEDS: AZITHROMYCIN 500 MG TABLET PO (09:06)
[2024-09-22] MEDS: cefTRIAXone 1 GM in SODIUM CHLORIDE 0.9% IV 50 ML 100 ML IVPB (09:06)
--- NOTE | 2024-09-22 09:46 | ECG_ITS ---
Test Date: 2024-09-22 09:56:35 Measurements Intervals [place] Rate: 60 P: 12 RI: 164 QRS: 56 QRSD: 145 T: 38 QT: 416 QTc: 417 Interpretive Statements SINUS RHYTHM WITH SINUS ARRHYTHMIA RIGHT BUNDLE BRANCH BLOCK [120+ ms QRS DURATION, UPRIGHT V1, 40+ ms S IN I/aVL/V4/V5/V6] Compared to ECG 09/22/2024 07:00:49 No significant changes Electronically Signed On 09-22-2024 11:27:41 CDT by Daniel Jin M.D.
[2024-09-22 10:28] LABS: Troponin I < 0.012 ng/mL (0.000-0.034)
--- NOTE | 2024-09-22 12:22 | P.CONCA_ITS ---
Assessment and Plan Assessment and plan (1) Chest pain: Code(s): R07.9 - Chest pain, unspecified <JANICE Tolentino - Last Filed: 09/22/24 13:21> Status: Acute <JANICE Tolentino - Last Filed: 09/22/24 13:21> Assessment and Plan: Atypical chest pain with negative troponin x 2 and EKG showing sinus rhythm with RBBB, no STTW abnormalities to suggest ischemia. Will check an echo and await results of third troponin. If he has normal LV function with no WMA, and third troponin negative, will plan for outpatient stress testing in the form of a nuclear stress test (arthritic knees, cannot walk on treadmill) for risk stratification as he does have risk factors for CAD. Offered the option of inpatient stress test but patient prefers outpatient stress if not necessary to remain admitted for this. <JANICE Tolentino - Last Filed: 09/22/24 13:21> Atypical chest pain with negative troponin x 2 and EKG showing sinus rhythm with RBBB, no STTW abnormalities to suggest ischemia. Will check an echo and await results of third troponin. If he has normal LV function with no WMA, and third troponin negative, will plan for outpatient stress testing in the form of a nuclear stress test (arthritic knees, cannot walk on treadmill) for risk stratification as he does have risk factors for CAD. Offered the option of inpatient stress test but patient prefers outpatient stress if not necessary to remain admitted for this. If patient remains hospitalized throughout tomorrow, will proceed with NST with meliza tomorrow <Daniel Jin MD - Last Filed: 09/22/24 14:47> (2) Hypertension: Code(s): I10 - Essential (primary) hypertension <JANICE Tolentino - Last Filed: 09/22/24 13:21> Status: Acute <JANICE Tolentino - Last Filed: 09/22/24 13:21> Assessment and Plan: Above goal. Increase lisinopril to 20mg daily. <JANICE Tolentino - Last Filed: 09/22/24 13:21> History of Present Illness History of Present Illness Consult date/time: 09/22/24 12:22 <JANICE Tolentino - Last Filed: 09/22/24 13:21> Requesting physician: Erika Stone MD <JANICE Tolentino - Last Filed: 09/22/24 13:21> Consult reason: chest pain <JANICE Tolentino - Last Filed: 09/22/24 13:21> Reason For Visit: cp,heart score 4,poss pna/pneumonitis <JANICE Tolentino - Last Filed: 09/22/24 13:21> Narrative: Oscar Sanders is a 74-year-old male with hypertension, hyperlipidemia, obstructive sleep apnea, type 2 diabetes. This is a patient who presents to the hospital with a chief complaint of right-sided chest pain. Cardiology is consulted for chest pain. Patient reports waking up last night about an hour after he fell asleep with right-sided chest discomfort. Patient describes the pain as a dull ache rated a 4/10 in intensity. Patient states that he took some Tylenol and went back to sleep. However, pain persisted when he woke up this morning and was diffuse across his chest, therefore he decided to come to the emergency department. He continues to have chest discomfort concentrated mostly on the right side of his chest. He denies any personal cardiac history and does not have a family history of cardiovascular disease. He denies any exertional chest pain, shortness of breath, palpitations, syncope, or presyncope. He is comfortable and not in any kind of distress at the time of my evaluation. < JANICE Tolentino - Last Filed: 09/22/24 13:21> Review of Systems 2 Review of Systems: All systems reviewed & are unremarkable except as noted in HPI and below <JANICE Tolentino - Last Filed: 09/22/24 13:21> [facility] Past Medical History Medical History: Medical History (Updated 09/22/24 @ 13:31 by Portia Mcdonald PA-C) Type 2 diabetes mellitus Gout Kidney stones Benign prostatic hyperplasia Gastroesophageal reflux disease Diverticulitis Obstructive sleep apnea does not use CPAP Allergy to dust Pollen allergies Arthritis Hyperlipidemia Hypertension <JANICE Tolentino - Last Filed: 09/22/24 13:21> Surgical History Surgical History: Surgical History History of colonoscopy (screening); Dr De Leon; 02/21/24 <JANICE Tolentino - Last Filed: 09/22/24 13:21> Family History Family History: Family History Other Unknown family medical history <JANICE Tolentino - Last Filed: 09/22/24 13:21> Social History Social History: Social History (Updated 09/22/24 @ 13:28 by Portia Mcdonald PA-C) Social History: Surrogate medical decision maker: Trina Sanders, spouse. Code status: Full code. Smoking status: Former smoker Tobacco type: cigars Smoking end date: 09/02/74 Alcohol intake: current Drinks per week: 5 Alcohol use details: beer Substance use: current Substance use type: does not use Do You Feel Safe in your Home?: Yes Lack of Transportation: No Lack of Food: Never True Current Housing: I Have Housing Concerned About Future Housing: No Difficulty Paying Gas/Electric Bills: No Difficulty Paying for Meds: No Currently Unemployed: No Education: Bachelor's Degree Difficulty w/ Childcare or Family Care: No Additional living arrangements comments: The patient lives with his in [place]. Spiritual care concerns: No <JANICE Tolentino - Last Filed: 09/22/24 13:21> Meds Home Medications and Allergies Home medications: Home Medications ?Medication ?Instructions ?Recorded ?Confirmed ?Type lisinopril 10 mg tablet 10 mg PO DAILY 12/11/23 09/22/24 History metformin 1,000 mg tablet 1,000 mg PO BID 12/11/23 09/22/24 History allopurinol 100 mg tablet 100 mg PO DAILY 02/04/24 09/22/24 History escitalopram oxalate 10 mg tablet 10 mg PO DAILY 02/04/24 09/22/24 History multivitamin with minerals-folic 1 tablet PO DAILY 09/22/24 09/22/24 History acid 80 mcg chewable tablet (Centrum Adult 50 Plus) <JANICE Tolentino - Last Filed: 09/22/24 13:21> Allergies/Adverse reactions: Allergies Allergy/AdvReac Type Severity Reaction Status Date / Time No Known Drug Allergies Allergy Unknown Other Verified 09/22/24 12:34 Cultivated Oat Pollen Allergy Unknown Rash Uncoded 09/22/24 07:25 <JANICE Tolentino - Last Filed: 09/22/24 13:21> Vital Signs Vital Signs - 24 hr 09/22/24 07:19 09/22/24 07:22 09/22/24 09:08 Temperature 36.7 C Pulse Rate 71 71 Respiratory Rate 16 16 Blood Pressure 150/86 H 151/97 H Pulse Oximetry 99 99 96 Oxygen Delivery Room Air Room Air 09/22/24 11:48 Temperature Pulse Rate 82 Respiratory Rate 18 Blood Pressure 145/64 H Pulse Oximetry 94 Oxygen Delivery <JANICE Tolentino - Last Filed: 09/22/24 13:21> Exam 2 Const: General: comfortable, no acute distress, alert and awake <JANICE Tolentino - Last Filed: 09/22/24 13:21> Orientation/consciousness: patient oriented x3 <JANICE Tolentino - Last Filed: 09/22/24 13:21> Other: Obese <JANICE Tolentino - Last Filed: 09/22/24 13:21> HENMT: Head: normal to inspection <JANICE Tolentino - Last Filed: 09/22/24 13:21> Eyes: General: appearance normal, both eyes and all related structures < JANICE Tolentino - Last Filed: 09/22/24 13:21> Pupils: Equal, round and reactive pupils present <JANICE Tolentino - Last Filed: 09/22/24 13:21> Neck: Neck: normal visual inspection, supple and no JVD <JANICE Tolentino - Last Filed: 09/22/24 13:21> Carotids: normal carotid upstroke and no bruits <JANICE Tolentino - Last Filed: 09/22/24 13:21> Resp: Effort & Inspection: normal respiratory effort <BRAYDEN Tolentino - Last Filed: 09/22/24 13:21> Auscultation: clear to auscultation bilaterally <JANICE Tolentino - Last Filed: 09/22/24 13:21> Cardio: Rate: regular rate <JANICE Tolentino - Last Filed: 09/22/24 13:21> Rhythm: regular rhythm <JANICE Tolentino - Last Filed: 09/22/24 13:21> Heart sounds: S1 normal heart sound present, S2 normal heart sound present and no murmurs <JANICE Tolentino - Last Filed: 09/22/24 13:21> GI: Auscultation: normal bowel sounds <JANICE Tolentino - Last Filed: 09/22/24 13:21> Skin: General skin exam: normal color <JANICE Tolentino - Last Filed: 09/22/24 13:21> Neuro: General: patient oriented x3 <JANICE Tolentino - Last Filed: 09/22/24 13:21> Cranial nerves: Yes Equal, round and reactive pupils present <JANICE Tolentino - Last Filed: 09/22/24 13:21> Extrem: General: normal to inspection <JANICE Tolentino - Last Filed: 09/22/24 13:21> Other: No edema <JANICE Tolentino - Last Filed: 09/22/24 13:21> Psych: Appearance: grossly normal <JANICE Tolentino - Last Filed: 09/22/24 13:21> Mental Status: mental status grossly normal <JANICE Tolentino - Last Filed: 09/22/24 13:21> Results Labs and Meds Result diagrams: 09/22/24 07:24 09/22/24 07:24 <JANICE Tolentino - Last Filed: 09/22/24 13:21> Lab results: Cardiac Enzymes 09/22/24 09/22/24 Range/Units 07:24 09:50 AST 33 (17-59) U/L Troponin I 0.012 < 0.012 (0.000-0.034) ng/mL Coagulation 09/22/24 Range/Units 07:24 PT 13.5 (11.1-14.7) Seconds APTT 33.3 (22.3-36.8) Seconds CBC 09/22/24 Range/Units 07:24 WBC 9.5 (4.5-10.0) K/mm3 RBC 4.42 L (4.6-6.20) M/mm3 Hgb 13.8 L (14.0-18.0) g/dL Hct 42.1 (42.0-52.0) % Plt Count 225 (150-375) k/mm3 Lymph # (Auto) 2.05 (0.9-3.2) K/mm3 [place] # (Auto) 0.5 (0.1-0.6) K/mm3 Eos # (Auto) 0.2 (0-0.3) K/mm3 Baso # (Auto) 0.1 (0.0-0.1) K/mm3 Comprehensive Metabolic Panel 09/22/24 Range/Units 07:24 Sodium 136 L (137-145) mmol/L Potassium 4.6 (3.4-5.0) mmol/L Chloride 105 (98-107) mmol/L Carbon Dioxide 21 L (22-30) mmol/L BUN 16 (9-20) mg/dL Creatinine 0.97 (0.7-1.3) mg/dL Glucose 157 H (65-110) mg/dL Calcium 9.9 (8.4-10.2) mg/dL AST 33 (17-59) U/L ALT 29 (6-50) U/L Alkaline Phosphatase 51 (38-126) U/L Total Protein 7.4 (6.3-8.2) g/dL Albumin 4.0 (3.5-5.1) g/dL Intake and Output 09/21/24 09/22/24 09/22/24 23:59 07:59 15:59 Intake Total 50 Balance 50 Intake: IV 50 cefTRIAXone 1 gm In Sodium 50 Chloride 0.9% IV 50 ml @ 100 mls/hr IVPB ONCE STA Rx#: [id number] Patient Weight 09/22/24 23:59 Weight 129 kg <JANICE Tolentino - Last Filed: 09/22/24 13:21>
--- NOTE | 2024-09-22 12:38 | ADMGEN ---
This patient, Oscar Sanders, was admitted to IMU Room 212-01. Patient/family oriented to hospital policies and general routines including ID bracelet, bed and alarms, visiting hours, pain management, procedures, bathroom and other care routines, personal items, smoking policy, room service/diet, and visiting hours. Information on how to activate the Rapid Response Team has been discussed. Patient/Family are encouraged to report perceived risks to care and to ask questions if they do not understand what they are told or what they should do.
--- NOTE | 2024-09-22 13:20 | P.HP_ITS ---
H&P: HPI History of Present Illness Date/Time: 09/22/24 14:00 Chief Complaint: Chest pain. Narrative: This is a very pleasant 74-year-old male with history of hypertension, hyperlipidemia, type 2 diabetes mellitus, and obstructive sleep apnea who presented to the emergency department complaints of chest pain. He ate a large meal last evening to consist of steak, twice baked potatoes, and creamed spinach. He went to bed full but was otherwise feeling okay. He does not sleep well as a rule and typically wakes up every 2 to 3 hours. After midnight he awoke and noticed that he had pain in the right side of his chest with some nausea as well. The pain is described as sore and tight in nature. After a period of time it began to radiate across the left side of his chest as well. Initially it seemed to be worse with deep inspiration but that has since resolved. He did not vomit but tells me that he ?spit up? a small amount of mucus which he attributes to postnasal drip from his allergies. His has not iced that his chronic cough (attributed to allergies) has been worse over the past 4 to 5 days but he has not noticed that it is more productive than baseline. He has never had similar symptoms. On occasion after a large meal he will get indigestion but the symptoms are not similar. At the time my evaluation however he perhaps has some discomfort diffusely throughout the upper abdomen, may be more so in the right upper quadrant but he cannot say for certain. He has no history of coronary artery disease. He denies exertional chest pain. He also denies syncope, near syncope, fever, chills, sweats, sore throat, productive cough, lower extremity edema, orthopnea, calf pain, dysphagia, and concerns for aspiration. No known history of gallstones, pancreatitis, or peptic ulcers. He denies sick contacts. In the ED: Blood pressure on arrival was 150/86; the rest of his vital signs were stable. Labs were significant for a D-dimer of 0.83, proBNP 38, troponin less than 0.012. EKG showed sinus rhythm with right bundle-branch block. Chest CTA was negative for pulmonary embolism but showed patchy ground-glass opacities (atypical pneumonia versus mild edema versus hypersensitivity pneumonitis) and cholelithiasis. He was given a dose of azithromycin ceftriaxone and is being admitted in this setting to rule out acute coronary syndrome. Review of Systems Review of Systems: 12 systems were reviewed and are negativ e except for as per HPI. [facility], LATER [facility] Past Medical History Medical History (Updated 09/22/24 @ 13:31 by Portia Mcdonald PA-C) Type 2 diabetes mellitus Gout Kidney stones Benign prostatic hyperplasia Gastroesophageal reflux disease Diverticulitis Obstructive sleep apnea does not use CPAP Allergy to dust Pollen allergies Arthritis Hyperlipidemia Hypertension Surgical History Surgical History History of colonoscopy (screening); Dr De Leon; 02/21/24 Family History Family History Other Unknown family medical history Social History Social History (Updated 09/22/24 @ 13:28 by Portia Mcdonald PA-C) Social History: Surrogate medical decision maker: Trina Sanders, spouse. Code status: Full code. Smoking status: Former smoker Tobacco type: cigars Smoking end date: 09/02/74 Alcohol intake: current Drinks per week: 5 Alcohol use details: beer Substance use: current Substance use type: does not use Do You Feel Safe in your Home?: Yes Lack of Transportation: No Lack of Food: Never True Current Housing: I Have Housing Concerned About Future Housing: No Difficulty Paying Gas/Electric Bills: No Difficulty Paying for Meds: No Currently Unemployed: No Education: Bachelor's Degree Difficulty w/ Childcare or Family Care: No Additional living arrangements comments: The patient lives with his in [place]. Spiritual care concerns: No Meds Home Medications and Allergies Home Medications ?Medication ?Instructions ?Recorded ?Confirmed ?Type lisinopril 10 mg tablet 10 mg PO DAILY 12/11/23 09/22/24 History metformin 1,000 mg tablet 1,000 mg PO BID 12/11/23 09/22/24 History allopurinol 100 mg tablet 100 mg PO DAILY 02/04/24 09/22/24 History escitalopram oxalate 10 mg tablet 10 mg PO DAILY 02/04/24 09/22/24 History multivitamin with minerals-folic 1 tablet PO DAILY 09/22/24 09/22/24 History acid 80 mcg chewable tablet (Centrum Adult 50 Plus) Allergies Allergy/AdvReac Type Severity Reaction Status Date / Time No Known Drug Allergies Allergy Unknown Other Verified 09/22/24 12:34 Cultivated Oat Pollen Allergy Unknown Rash Uncoded 09/22/24 07:25 Vital Signs Vital Signs - 24 hr 09/22/24 07:19 09/22/24 07:22 09/22/24 09:08 Temperature 98.0 F Pulse Rate 71 71 Respiratory Rate 16 16 Blood Pressure 150/86 H 151/97 H Pulse Oximetry 99 99 96 Oxygen Delivery Room Air Room Air 09/22/24 11:48 09/22/24 12:46 Temperature 97.1 F L Pulse Rate 82 68 Respiratory Rate 18 Blood Pressure 145/64 H 151/86 H Pulse Oximetry 94 97 Oxygen Delivery Exam Narrative: General: Well-developed, nontoxic-appearing male in the semi-Stover position in bed in no acute distress. Weight: 113.3 kg. BMI: 35.8. HEENT: PERRL, EOMI. Sclera anicteric. Oral mucosa moist. Neck: Supple. Respiratory: Lungs are clear to auscultation bilaterally. Cardiovascular: Regular rate and rhythm with S1-S2. Chest: No tenderness to palpation over the chest wall. Gastrointestinal: Abdomen is soft, obese, and nondistended with positive bowel sounds. He is perhaps mildly tender to palpation throughout the upper abdomen. No guarding or rebound tenderness. Negative Calhoun sign. Skin: Warm and dry. No rash or lesions on limited exam. Extremities: No cyanosis, clubbing, or significant edema. Radial and pedal pulses intact. Neurological: Alert. Cranial nerves 2-12 are grossly intact. No gross focal deficits to casual conversation. Psychiatric: Pleasant and cooperative with normal mood and affect. Judgment and insight intact. H&P: Results Labs Labs: Short CBC 09/22/24 Range/Units 07:24 WBC 9.5 (4.5-10.0) K/mm3 Hgb 13.8 L (14.0-18.0) g/dL Hct 42.1 (42.0-52.0) % Plt Count 225 (150-375) k/mm3 [facility] 09/22/24 07:24 Sodium 136 L Potassium 4.6 Chloride 105 Carbon Dioxide 21 L BUN 16 Creatinine 0.97 Glucose 157 H Calcium 9.9 Cardiac Enzymes 09/22/24 09/22/24 Range/Units 07:24 09:50 Troponin I 0.012 < 0.012 (0.000-0.034) ng/mL Liver Function 09/22/24 Range/Units 07:24 Total Bilirubin 0.3 (0.2-1.3) mg/dL AST 33 (17-59) U/L ALT 29 (6-50) U/L Alkaline Phosphatase 51 (38-126) U/L Albumin 4.0 (3.5-5.1) g/dL Imaging Chest X-Ray 09/22/24 07:56 IMPRESSION: 1: NO ACUTE CARDIOPULMONARY DISEASE. Chest CTA 09/22/24 08:23 IMPRESSION: 1. No evidence for pulmonary embolism. 2: Patchy groundglass opacities of the lungs. Differential diagnosis includes atypical pneumonia, mild edema and hypersensitivity pneumonitis. 3: Cholelithiasis. Assessment and Plan Assessment and plan (1) Chest pain: Code(s): R07.9 - Chest pain, unspecified Status: Acute (2) Cholelithiasis: Code(s): K80.20 - Calculus of gallbladder without cholecystitis without obstruction Status: Acute (3) Ground glass opacity present on imaging of lung: Code(s): R91.8 - Other nonspecific abnormal finding of lung field Status: Acute (4) Hypertension: Code(s): I10 - Essential (primary) hypertension Status: Acute (5) Type 2 diabetes mellitus: Code(s): E11.9 - Type 2 diabetes mellitus without complications Status: Acute Plan The patient presented to the emergency department for evaluation of right anterior chest pain which occurred sometime overnight as detailed in HPI. Labs, imaging, EKG, and all reports were personally reviewed. This is atypical for cardiac related pain however he has risk factors for coronary artery disease and cardiology has been consulted for their opinion. Troponins have thus far been negative. He does not have reproducible tenderness over the chest wall but does have perhaps mild tenderness throughout the upper abdomen. A right upper quadrant ultrasound has been ordered to evaluate the gallbladder given findings of cholelithiasis on CT scan. Ground-glass opacities were also seen on CT scan which could indicate pneumonia and with his increasing cough we will continue with antibiotics for now although he has been afebrile and has a normal WBC count. Blood pressures have been running in the 140s 150s systolic and will be monitored closely for now; continue lisinopril 20 mg daily. Hold metformin as he received IV contrast. Initiate sliding scale insulin, Accu-Cheks, and hypoglycemic protocol. The rest of his home medications will be reviewed and resumed as appropriate. Findings and treatment plan were discussed with the patient. Questions were solicited and answered to satisfaction. The patient's medical management will be taken over by the hospitalist team in a.m. Quality VTE Prophylaxis VTE prophylaxis: pharmacologic ordered The patient has been admitted under observation status. Hospitalist MIPS Advance Care Plan I have confirmed that the patient's Advanced Care Plan is present, code status is documented, or surrogate decision maker is listed in patient medical record.: Yes Medication Reconciliation I have utilized all available resources to obtain, update and review the patients current medications (includes all prescriptions, OTC, herbals, canna bis, and nutritional supplements).: Yes
[2024-09-22 13:31] LABS: Troponin I < 0.012 ng/mL (0.000-0.034)
[2024-09-22] MEDS: ESCITALOPRAM OXALATE 10 MG TABLET PO (14:22)
[2024-09-22] MEDS: ENOXAPARIN 40 MG/0.4 ML SYRINGE SUB-Q (14:22)
[2024-09-22] MEDS: PERFLUTREN LIPID MICROSPHERES 1.5 ML VIAL DILUTED TO 10 ML TOTAL VOLUME IV PUSH (14:30)
[2024-09-22 14:34] LABS: Hemoglobin A1C 6.3 % (<5.7)
--- NOTE | 2024-09-22 14:39 | IVDEFINITY ---
Prior to administration of IV Definity the patient was educated on the risks and benefits of the imaging enhancing agent including potential adverse side effects. The patient verbalized understanding. Allergies were verified. No exclusion criteria were identified and at least one of the following inclusion criteria were met: 1) physician request, 2) patient technically difficult to image (per the [place] [employer] guidelines of two or more segments not discernable within the apical view), or 3) questionable left ventricular function. ?
[2024-09-22] MEDS: MULTIVITS W-FE,MIN CHEWABLE TABLET 1 TABLET PO (14:53)
[2024-09-23] VITALS (16 sets, daily range): BP systolic 125–142; BP diastolic 71–75; PULSE 71–106; RESP 14–20; TEMP 36.4–37.3; O2SAT 92–96
--- NOTE | 2024-09-23 | EST_ITS ---
Patient Info Name: Oscar Sanders Age: 74 years : 1950 Gender: Male Ht: 70 in Wt: 146 lbs BSA: 1.80 m2 Exam Date: 09/23/2024 10:32 AM Patient Status: I Admit Date: 09/23/2024 Exam Type: CA stress meliza w NM A regadenoson stress test was performed. Staff Referring Physician: Eloise Aden Attending Provider: Vania Prabhakar MD Exercise Technologist: Margie Avila Exercise Physician: Kristal Victor MD Summary 1. No abnormal ST/T wave changes diagnostic of ischemia with Lexiscan. 2. Occasional PVCs. 3. Please correlate with nuclear medicine images, reported separately. 4. Stress test supervised by Kristal Victor MD and interpreted by Kristal Victor MD. Protocol: Lexiscan Stress ECG Details Stage: REST Duration (min): 1 min : 36 sec HR (bpm): 83 SBP (mmHg): 131 DBP (mmHg): 85 Stage: REST Duration (min): 17 min : 15 sec HR (bpm): 84 SBP (mmHg): 131 DBP (mmHg): 85 Stage: STAGE 1 Duration (min): 0 min : 59 sec HR (bpm): 102 SBP (mmHg): 113 DBP (mmHg): 76 Stage: RECOVERY Duration (min): 1 min : 0 sec HR (bpm): 101 SBP (mmHg): 108 DBP (mmHg): 74 Stage: RECOVERY Duration (min): 2 min : 0 sec HR (bpm): 99 SBP (mmHg): 108 DBP (mmHg): 74 Stage: RECOVERY Duration (min): 3 min : 0 sec HR (bpm): 96 SBP (mmHg): 109 DBP (mmHg): 71 Stage: RECOVERY Duration (min): 4 min : 0 sec HR (bpm): 88 SBP (mmHg): 109 DBP (mmHg): 71 Stage: RECOVERY Duration (min): 5 min : 0 sec HR (bpm): 94 SBP (mmHg): 113 DBP (mmHg): 72 Stage: RECOVERY Duration (min): 6 min : 0 sec HR (bpm): 88 SBP (mmHg): 113 DBP (mmHg): 72 Stage: RECOVERY Duration (min): 7 min : 0 sec HR (bpm): 93 SBP (mmHg): 112 DBP (mmHg): 69 Stage: RECOVERY Duration (min): 7 min : 49 sec HR (bpm): 90 SBP (mmHg): 112 DBP (mmHg): 69 Rest HR: 84 bpm Peak HR: 103 bpm Rest Sys BP: 131 mmHg Peak Sys BP: 113 mmHg Max Pred HR: 145 bpm % Max Pred HR: 71 % Target HR: 123 bpm Max RPP: 11,639 bpm*mmHg Total Time: 1 min : 0 sec Rest Santiago BP: 85 mmHg Peak Santiago BP: 76 mmHg Total Dose: 0.4 mg Resting ECG Sinus rhythm, RBBB. Stress ECG No abnormal ST/T wave changes diagnostic of ischemia with Lexiscan. Arrhythmias Occasional PVCs. Report Signatures
[2024-09-23 04:15] LABS: Hematocrit 41.0 % (42.0-52.0); Hemoglobin 13.4 g/dL (14.0-18.0); Mean Corpuscular HGB Conc 32.7 g/dl (32-36); Mean Corpuscular Hemoglobin 31.0 pg (26-34); Mean Corpuscular Volume 94.9 fl (80-100); Platelet Count Result 205 k/mm3 (150-375); Red Blood Count 4.32 M/mm3 (4.6-6.20); White Blood Count 12.0 K/mm3 (4.5-10.0)
[2024-09-23 04:47] LABS: Procalcitonin 0.1 ng/mL
[2024-09-23 04:49] LABS: Anion Gap 10 mmol/L (4-12); Blood Urea Nitrogen 11 mg/dL (9-20); Calcium 9.6 mg/dL (8.4-10.2); Carbon Dioxide 23 mmol/L (22-30); Chloride 102 mmol/L (98-107); Cholesterol 138 mg/dL (0-200); Estimated CRCL calculation 78 ml/min; Estimated Glomerular Filt Rate > 60; Glucose 145 mg/dL (65-110); HDL Direct 29 mg/dL; Magnesium 1.8 mg/dL (1.6-2.3); Potassium 4.0 mmol/L (3.4-5.0); Sodium 135 mmol/L (137-145); Triglycerides 347 mg/dL (<150)
--- NOTE | 2024-09-23 08:24 | P.PNIM_ITS ---
Progress Note: A&P Assessment and Plan (1) Chest pain: Code(s): R07.9 - Chest pain, unspecified Status: Acute Assessment and Plan: * Monitor vital signs, I&Os, chest pain, shortness of breath and patient is a fa ll risk * Monitor PTT, serial troponins, Serum electrolytes, and cbc * Keep serum potassium >4 and keep magnesium >2 * Cardiology consulted, appreciate assistance and recommendations * Nitro drip, titrate as needed per ACS protocol * Heparin drip per ACS protocol * Monitor for bloody bowel movements,chest pain,SOB or dizziness/lightheadedness * Obtain an Echocardiogram * Consider adding atorvastatin 40 mg daily, aspirin 81 mg daily and metoprolol tartrate 25 mg p.o. b.i.d. * Diet: NPO until evaluated by Cardiology * DVT Px: Lovenox * NST today (2) Cholelithiasis: Code(s): K80.20 - Calculus of gallbladder without cholecystitis without obstruction Status: Acute Assessment and Plan: * Monitor vital signs, I and O's, check stool output, neuro status and patient is a fall risk * Monitor serum electrolytes and CBC * Monitor lactic acid * IV pain management * Gentle IV fluid resuscitation * Right upper quadrant ultrasound (3) Ground glass opacity present on imaging of lung: Code(s): R91.8 - Other nonspecific abnormal finding of lung field Status: Acute Assessment and Plan: * CXR: NO ACUTE CARDIOPULMONARY DISEASE. * Chest CT: Patchy groundglass opacities of the lungs. Differential diagnosis includes atypical pneumonia, mild edema and hypersensitivity pneumonitis. * started on CAP tx: azithromycin & ceftriaxone * Viral PCR: Pending * no supplemental O2 requirement * trend labs * Monitor vital signs, I&Os, neuro status and patient is a fall risk * Follow WBC, serum electrolytes, temperature curves and cultures * Send sputum cultures * Gentle IV fluid resuscitation (4) Hypertension: Code(s): I10 - Essential (primary) hypertension Status: Acute Assessment and Plan: * Patient's blood pressure was reviewed on 09/23 * Blood pressure remains well controlled. * Will continue current medications. (5) Type 2 diabetes mellitus: Code(s): E11.9 - Type 2 diabetes mellitus without complications Status: Acute Assessment and Plan: * Hypoglycemia protocol * POC blood glucose ACHS * Home medication -metformin, on hold * Correct regimen ordered - low dose TIDWM and HS A1C 6.3% (09/22/2024) Subjective Date/time seen: 09/23/24 08:24 Interval history: 74-year-old male with history of hypertension, hyperlipidemia, type 2 diabetes mellitus, and obstructive sleep apnea who presented to the emergency department complaints of chest pain. 09/23/2024 Patient sitting comfortably in bed at time of exam. Denies any chest pain, shortness of breath, n/v, or abd pain at this time. General surgery consulted regarding presence of gallstones in the gallbladder without evidence of cholecystitis. No surgical intervention indicated at this time. Will proceed with stress test today. Continue treating for pneumonia but lack of fever, leukocytosis or presence of SOB/cough puts pneumonia on lower clinical suspicion. Pt otherwise stable and has no concerns or complaints. Review of Systems Review of Systems: 12 systems were reviewed and are negativ e except for as per HPI. Exam Narrative: General: Well-developed, nontoxic-appearing male in the semi-Stover position in bed in no acute distress. Weight: 113.3 kg. BMI: 35.8. HEENT: PERRL, EOMI. Sclera anicteric. Oral mucosa moist. Neck: Supple. Respiratory: Lungs are clear to auscultation bilaterally. Cardiovascular: Regular rate and rhythm with S1-S2. Chest: No tenderness to palpation over the chest wall. Gastrointestinal: Abdomen is soft, obese, and nondistended with positive bowel sounds. He is perhaps mildly tender to palpation throughout the upper abdomen. No guarding or rebound tenderness. Negative Calhoun sign. Skin: Warm and dry. No rash or lesions on limited exam. Extremities: No cyanosis, clubbing, or significant edema. Radial and pedal pulses intact. Neurological: Alert. Cranial nerves 2-12 are grossly intact. No gross focal deficits to casual conversation. Psychiatric: Pleasant and cooperative with normal mood and affect. Judgment and insight intact. Objective Data Vital Signs Vital Signs: Vital Signs - 24 hr 09/22/24 09:08 09/22/24 11:48 09/22/24 12:33 Temperature Pulse Rate 71 82 69 Respiratory Rate 16 18 Blood Pressure 151/97 H 145/64 H Pulse Oximetry 96 94 Oxygen Delivery 09/22/24 12:46 09/22/24 13:21 09/22/24 14:00 Temperature 97.1 F L Pulse Rate 68 67 Respiratory Rate Blood Pressure 151/86 H Pulse Oximetry 97 Oxygen Delivery Room Air 09/22/24 16:00 09/22/24 16:00 09/22/24 16:00 Temperature 98.1 F Pulse Rate 64 71 Respiratory Rate 20 Blood Pressure 150/84 H Pulse Oximetry 94 Oxygen Delivery Room Air 09/22/24 18:00 09/22/24 20:00 09/22/24 20:00 Temperature 97.6 F Pulse Rate 68 91 Respiratory Rate 16 Blood Pressure 153/79 H Pulse Oximetry 93 Oxygen Delivery Room Air 09/22/24 20:00 09/22/24 23:48 09/23/24 00:00 Temperature 99.2 F Pulse Rate 68 87 Respiratory Rate 18 Blood Pressure 133/75 Pulse Oximetry 96 Oxygen Delivery Room Air 09/23/24 00:00 09/23/24 04:00 09/23/24 04:00 Temperature Pulse Rate 76 71 Respiratory Rate Blood Pressure Pulse Oximetry Oxygen Delivery Room Air 09/23/24 04:00 09/23/24 07:29 Temperature 98.2 F 97.9 F Pulse Rate 77 79 Respiratory Rate 18 14 Blood Pressure 142/75 H 133/71 Pulse Oximetry 95 93 Oxygen Delivery Intake/Output Intake/Output: Intake & Output 09/20/24 09/21/24 09/22/24 09/23/24 23:59 23:59 23:59 23:59 Intake Total 530 120 Output Total 400 225 Balance 130 -105 Meds/Results Medications: Active Medications Generic Name Dose Route Start Last Admin Trade Name Freq PRN Reason Stop Dose Admin Acetaminophen 650 mg 09/22/24 10:51 Acetaminophen 325 Mg Tablet PO Q4H PRN Mild Pain (1-3) or Fever Allopurinol 100 mg 09/22/24 13:50 09/22/24 14:22 Allopurinol 100 Mg Tablet PO 100 mg DAILY LUIS ENRIQUE Administration Azithromycin 250 mg 09/23/24 09:00 Azithromycin 250 Mg Tablet PO 09/26/24 09:01 DAILY LUIS ENRIQUE Dextrose 12.5 gm 09/22/24 13:29 Dextrose 50% 25 Gm/50 Ml Syringe IV PUSH PRN PRN Hypoglycemia Protocol Enoxaparin Sodium 40 mg 09/22/24 13:45 09/22/24 14:22 Enoxaparin 40 Mg/0.4 Ml Syringe SUB-Q 40 mg DAILY LUIS ENRIQUE Administration Escitalopram Oxalate 10 mg 09/22/24 13:50 09/22/24 14:22 Escitalopram Oxalate 10 Mg Tablet PO 10 mg DAILY LUIS ENRIQUE Administration Glucagon 1 mg 09/22/24 13:29 Glucagon For Inj 1 Mg Vial IM PRN PRN Hypoglycemia Protocol Glucose 15 gm 09/22/24 13:29 Glucose Oral Gel 15 Gm Of Glucse In 37.5 Gm Tube PO PRN PRN Hypoglycemia Protocol Dextrose 1,000 mls @ 100 mls/hr 09/22/24 13:29 Dextrose 5% 1,000 Ml IVPB PRN PRN Hypoglycemia Protocol Ceftriaxone Sodium 1 gm/ 50 mls @ 100 mls/hr 09/23/24 09:00 Sodium Chloride IVPB DAILY LUIS ENRIQUE Insulin Aspart 2 - 5 units 09/22/24 17:00 09/23/24 07:47 Insulin Aspart (*Bkc) 100 Units/Ml SUB-Q Not Given TIDWM [facility] Protocol Insulin Aspart 1 - 2 units 09/22/24 21:00 09/22/24 20:27 Insulin Aspart (*Bkc) 100 Units/Ml SUB-Q Not Given HS [facility] Protocol Lisinopril 20 mg 09/22/24 13:45 09/22/24 14:22 Lisinopril 20 Mg Tablet PO 20 mg DAILY LUIS ENRIQUE Administration Multivitamins/Minerals 1 tablet 09/22/24 13:50 09/22/24 14:53 Multivits W-Fe,Min Chewable Tablet PO 1 tablet DAILY LUIS ENRIQUE Administration Ondansetron HCl 4 mg 09/22/24 10:51 Ondansetron Inj 4 Mg/2 Ml Vial IV PUSH Q4H PRN Nausea Radiology Results: ITS Impressions Chest X-Ray 09/22/24 07:56 IMPRESSION: 1: NO ACUTE CARDIOPULMONARY DISEASE. Chest CTA 09/22/24 08:23 IMPRESSION: 1. No evidence for pulmonary embolism. 2: Patchy groundglass opacities of the lungs. Differential diagnosis includes atypical pneumonia, mild edema and hypersensitivity pneumonitis. 3: Cholelithiasis. Labs Labs: Laboratory Results - last 24 hr 09/22/24 09/22/24 09/22/24 07:24 09:50 12:57 WBC RBC Hgb Hct MCV MCH MCHC RDW Plt Count MPV Sodium Potassium Chloride Carbon Dioxide Anion Gap BUN Creatinine Estim Creat Clear Calc Estimated GFR Glucose POC Capillary Glucose Hemoglobin A1c 6.3 H Calcium Magnesium Troponin I < 0.012 < 0.012 NT-Pro-B Natriuret Pep 38 Triglycerides Cholesterol LDL Cholesterol Direct HDL Direct Procalcitonin 09/22/24 09/22/24 09/23/24 18:06 19:46 03:55 WBC 12.0 H RBC 4.32 L Hgb 13.4 L Hct 41.0 L MCV 94.9 MCH 31.0 MCHC 32.7 RDW 13.3 Plt Count 205 MPV 10.3 Sodium 135 L Potassium 4.0 Chloride 102 Carbon Dioxide 23 Anion Gap 10 BUN 11 D Creatinine 0.90 Estim Creat Clear Calc 78 Estimated GFR > 60 Glucose 145 H POC Capillary Glucose 145 H 150 H Hemoglobin A1c Calcium 9.6 Magnesium 1.8 Troponin I NT-Pro-B Natriuret Pep Triglycerides 347 H Cholesterol 138 LDL Cholesterol Direct 47 HDL Direct 29 Procalcitonin 0.1 09/23/24 07:30 WBC RBC Hgb Hct MCV MCH MCHC RDW Plt Count MPV Sodium Potassium Chloride Carbon Dioxide Anion Gap BUN Creatinine Estim Creat Clear Calc Estimated GFR Glucose POC Capillary Glucose 142 H Hemoglobin A1c Calcium Magnesium Troponin I NT-Pro-B Natriuret Pep Triglycerides Cholesterol LDL Cholesterol Direct HDL Direct Procalcitonin Quality VTE Prophylaxis VTE prophylaxis: pharmacologic ordered
[2024-09-23] MEDS: cefTRIAXone 1 GM in SODIUM CHLORIDE 0.9% IV 50 ML 100 ML IVPB (09:00)
[2024-09-23] MEDS: AZITHROMYCIN 250 MG TABLET PO (09:00)
[2024-09-23 09:53] LABS: Influenza A QL RT-PCR Negative (Negative); Influenza B QL RT-PCR Negative (Negative); RSV RNA, RT-PCR Negative (Negative); SARS-CoV-2 RNA PCR Negative (Negative)
[2024-09-23] MEDS: ESCITALOPRAM OXALATE 10 MG TABLET PO (10:58)
[2024-09-23] MEDS: MULTIVITS W-FE,MIN CHEWABLE TABLET 1 TABLET PO (10:58)
--- NOTE | 2024-09-23 11:04 | P.CONGS_ITS ---
Assessment and Plan Assessment and plan (1) Cholelithiasis: Code(s): K80.20 - Calculus of gallbladder without cholecystitis without obstruction Status: Acute Assessment and Plan: Patient presented to the ED last night complaining of right-sided chest pain. He did have a dinner consisting of chicken thighs, twice make potatoes, and cauliflower. He was able to fall sleep but awoke an hour later with the pain in his chest. Cardiac workup fairly benign, aside from right bundle-branch block and dilated aortic root demonstrated on echo. Patient has never had an episode of pain like this. He does not complain of any pain today. Abdominal exam benign. No immediate surgical intervention necessary. Patient voiced that he did not feel as though his symptoms were severe enough today to want to undergo surgery at this time. Discussed options with patient regarding outpatient treatment of cholecystitis if symptoms persist. (2) Type 2 diabetes mellitus: Code(s): E11.9 - Type 2 diabetes mellitus without complications Status: Acute Assessment and Plan: Continue management per hospitalist recs. Plan Discussed patient's case and plan of care with Dr. Iyer. History of Present Illness Consult details Consult date: 09/23/24 Reason for consult: other (Cholecystitis) Requesting physician: Joes Dubois PA-C Narrative: Patient is a 74-year-old male with history of hypertension, hyperlipidemia, type 2 diabetes mellitus, and obstructive sleep apnea who we have been asked to see in surgical consultation for cholecystitis. Patient presented to emergency department yesterday with complaints of chest pain. He ate a dinner consisting of chicken thighs, twice baked potatoes, and cauliflower. He had no issues immediately after eating the meal. He was able to fall asleep, but awoke about an hour later with right-sided chest pain. He noted some nausea, but attributed this to his allergies causing him to have productive cough. Patient denies ever having pain like this. In the ED, labs were significant for a D-dimer of 0.83, proBNP 38. EKG showed sinus rhythm with right bundle branch block. Troponins less than 0.012. Chest CTA was negative for pulmonary embolism, however it showed patchy ground-glass opacities representing atypical pneumonia versus mild edema versus hypersensitivity pneumonitis. CTA also demonstrated cholelithiasis. Cardiology was consulted and obtained an echo. Inpatient stress test ordered for today. Abdominal ultrasound was ordered and demonstrated cholelithiasis with gallbladder wall thickening. No pericholecystic fluid or biliary dilation. Common bile duct 5 mm. No sonographic Calhoun's sign. Upon interview with patient today, he states that his pain is much improved. Ambulating around the room without difficulty. WBC did increased to 12.0 from 9.5 yesterday. Vital signs have remained stable. Currently receiving ceftriaxone and azithromycin for pneumonia treatment. [facility] Past Medical History Medical History (Updated 09/22/24 @ 13:31 by Portia Mcdonald PA-C) Type 2 diabetes mellitus Gout Kidney stones Benign prostatic hyperplasia Gastroesophageal reflux disease Diverticulitis Obstructive sleep apnea does not use CPAP Allergy to dust Pollen allergies Arthritis Hyperlipidemia Hypertension Surgical History Surgical History History of colonoscopy (screening); Dr De Leon; 02/21/24 Family History Family History Other Unknown family medical history Social History Social History (Updated 09/22/24 @ 13:28 by Portia Mcdonald PA-C) Social History: Surrogate medical decision maker: Trina Sanders, spouse. Code status: Full code. Smoking status: Former smoker Tobacco type: cigars Smoking end date: 09/02/74 Alcohol intake: current Drinks per week: 5 Alcohol use details: beer Substance use: current Substance use type: does not use Do You Feel Safe in your Home?: Yes Lack of Transportation: No Lack of Food: Never True Current Housing: I Have Housing Concerned About Future Housing: No Difficulty Paying Gas/Electric Bills: No Difficulty Paying for Meds: No Currently Unemployed: No Education: Bachelor's Degree Difficulty w/ Childcare or Family Care: No Additional living arrangements comments: The patient lives with his in [place]. Spiritual care concerns: No Meds Home Medications and Allergies Home Medications ?Medication ?Instructions ?Recorded ?Confirmed ?Type lisinopril 10 mg tablet 10 mg PO DAILY 12/11/23 09/22/24 History metformin 1,000 mg tablet 1,000 mg PO BID 12/11/23 09/22/24 History allopurinol 100 mg tablet 100 mg PO DAILY 02/04/24 09/22/24 History escitalopram oxalate 10 mg tablet 10 mg PO DAILY 02/04/24 09/22/24 History multivitamin with minerals-folic 1 tablet PO DAILY 09/22/24 09/22/24 History acid 80 mcg chewable tablet (Centrum Adult 50 Plus) Allergies Allergy/AdvReac Type Severity Reaction Status Date / Time No Known Drug Allergies Allergy Unknown Other Verified 09/22/24 12:34 Cultivated Oat Pollen Allergy Unknown Rash Uncoded 09/22/24 07:25 Vital Signs Vital Signs - 24 hr 09/22/24 11:48 09/22/24 12:33 09/22/24 12:46 Temperature 97.1 F L Pulse Rate 82 69 68 Respiratory Rate 18 Blood Pressure 145/64 H 151/86 H Pulse Oximetry 94 97 Oxygen Delivery 09/22/24 13:21 09/22/24 14:00 09/22/24 16:00 Temperature 98.1 F Pulse Rate 67 64 Respiratory Rate 20 Blood Pressure 150/84 H Pulse Oximetry 94 Oxygen Delivery Room Air 09/22/24 16:00 09/22/24 16:00 09/22/24 18:00 Temperature Pulse Rate 71 68 Respiratory Rate Blood Pressure Pulse Oximetry Oxygen Delivery Room Air 09/22/24 20:00 09/22/24 20:00 09/22/24 20:00 Temperature 97.6 F Pulse Rate 91 68 Respiratory Rate 16 Blood Pressure 153/79 H Pulse Oximetry 93 Oxygen Delivery Room Air 09/22/24 23:48 09/23/24 00:00 09/23/24 00:00 Temperature 99.2 F Pulse Rate 87 76 Respiratory Rate 18 Blood Pressure 133/75 Pulse Oximetry 96 Oxygen Delivery Room Air 09/23/24 04:00 09/23/24 04:00 09/23/24 04:00 Temperature 98.2 F Pulse Rate 71 77 Respiratory Rate 18 Blood Pressure 142/75 H Pulse Oximetry 95 Oxygen Delivery Room Air 09/23/24 07:29 09/23/24 08:00 09/23/24 08:40 Temperature 97.9 F Pulse Rate 79 77 Respiratory Rate 14 Blood Pressure 133/71 Pulse Oximetry 93 93 Oxygen Delivery Room Air 09/23/24 10:00 Temperature Pulse Rate 74 Respiratory Rate Blood Pressure Pulse Oximetry Oxygen Delivery Exam 2 Const: General: comfortable and no acute distress Other: Walking back to bed from bathroom Eyes: General: appearance normal, both eyes and all related structures Neck: Neck: supple Resp: Effort & Inspection: normal respiratory effort Cardio: Rate: regular rate GI: Inspection: non-distended GI Palp: Yes Soft to palpation, No Tenderness to palpation present (GI) and No Guarding due to palpation present (GI) A uscultation: normal bowel sounds Other: Umbilical hernia present with no tenderness to palpation. : General: Yes bladder normal to palpation Skin: General skin exam: normal color and no rashes or lesions noted Neuro: General: gait normal Speech: normal speech Extrem: General: normal to inspection Psych: Mental Status: mental status grossly normal Results Labs 09/23/24 03:55 09/23/24 03:55 Labs: Abnormal lab results 09/22/24 09/22/24 09/22/24 Range/Units 07:24 18:06 19:46 WBC (4.5-10.0) K/mm3 RBC (4.6-6.20) M/mm3 Hgb (14.0-18.0) g/dL Hct (42.0-52.0) % Sodium (137-145) mmol/L Glucose (65-110) mg/dL POC Capillary Glucose 145 H 150 H (65-105) mg/dl Hemoglobin A1c 6.3 H (<5.7) % Triglycerides (<150) mg/dL 09/23/24 09/23/24 Range/Units 03:55 07:30 WBC 12.0 H (4.5-10.0) K/mm3 RBC 4.32 L (4.6-6.20) M/mm3 Hgb 13.4 L (14.0-18.0) g/dL Hct 41.0 L (42.0-52.0) % Sodium 135 L (137-145) mmol/L Glucose 145 H (65-110) mg/dL POC Capillary Glucose 142 H (65-105) mg/dl Hemoglobin A1c (<5.7) % Triglycerides 347 H (<150) mg/dL Diabetes panel 09/22/24 09/23/24 Range/Units 07:24 03:55 Sodium 135 L (137-145) mmol/L Potassium 4.0 (3.4-5.0) mmol/L Chloride 102 (98-107) mmol/L Carbon Dioxide 23 (22-30) mmol/L BUN 11 D (9-20) mg/dL Creatinine 0.90 (0.7-1.3) mg/dL Glucose 145 H (65-110) mg/dL Hemoglobin A1c 6.3 H (<5.7) % Calcium 9.6 (8.4-10.2) mg/dL Triglycerides 347 H (<150) mg/dL Calcium panel 09/23/24 Range/Units 03:55 Calcium 9.6 (8.4-10.2) mg/dL Pituitary panel 09/23/24 Range/Units 03:55 Sodium 135 L (137-145) mmol/L Potassium 4.0 (3.4-5.0) mmol/L Chloride 102 (98-107) mmol/L Carbon Dioxide 23 (22-30) mmol/L BUN 11 D (9-20) mg/dL Creatinine 0.90 (0.7-1.3) mg/dL Glucose 145 H (65-110) mg/dL Calcium 9.6 (8.4-10.2) mg/dL Adrenal panel 09/23/24 Range/Units 03:55 Sodium 135 L (137-145) mmol/L Potassium 4.0 (3.4-5.0) mmol/L Chloride 102 (98-107) mmol/L Carbon Dioxide 23 (22-30) mmol/L BUN 11 D (9-20) mg/dL Creatinine 0.90 (0.7-1.3) mg/dL Glucose 145 H (65-110) mg/dL Calcium 9.6 (8.4-10.2) mg/dL All other labs normal.
[2024-09-24] VITALS (9 sets, daily range): BP systolic 113–124; BP diastolic 73–74; PULSE 74–99; RESP 16–18; TEMP 36.6; O2SAT 95
[2024-09-24 07:31] LABS: Hematocrit 40.5 % (42.0-52.0); Hemoglobin 13.2 g/dL (14.0-18.0); Immature Granulocyte Percent A 1.0 % (0-0.5); Lymphocytes Absolute Auto 2.11 K/mm3 (0.9-3.2); Mean Corpuscular HGB Conc 32.6 g/dl (32-36); Mean Corpuscular Hemoglobin 31.2 pg (26-34); Mean Corpuscular Volume 95.7 fl (80-100); Nucleated Red Blood Cells Absolute Auto 0.000 K/mm3 (0.0-0.012); Nucleated Red Blood Cells Perc 0.0 % (0.0-0.2); Platelet Count Result 199 k/mm3 (150-375); Red Blood Count 4.23 M/mm3 (4.6-6.20); White Blood Count 11.4 K/mm3 (4.5-10.0)
[2024-09-24 07:51] LABS: Alanine Aminotransferase 18 U/L (6-50); Albumin Level 3.6 g/dL (3.5-5.1); Alkaline Phosphatase 41 U/L (38-126); Anion Gap 7 mmol/L (4-12); Aspartate Amino Transferase 28 U/L (17-59); Bilirubin,Total 1.2 mg/dL (0.2-1.3); Blood Urea Nitrogen 15 mg/dL (9-20); Calcium 9.1 mg/dL (8.4-10.2); Carbon Dioxide 25 mmol/L (22-30); Chloride 102 mmol/L (98-107); Estimated CRCL calculation 73 ml/min; Estimated Glomerular Filt Rate > 60; Glucose 122 mg/dL (65-110); Magnesium 2.0 mg/dL (1.6-2.3); Potassium 4.2 mmol/L (3.4-5.0); Sodium 134 mmol/L (137-145); Total Protein 6.8 g/dL (6.3-8.2)
[2024-09-24] MEDS: ENOXAPARIN 40 MG/0.4 ML SYRINGE SUB-Q (08:30)
[2024-09-24] MEDS: ESCITALOPRAM OXALATE 10 MG TABLET PO (08:31)
[2024-09-24] MEDS: MULTIVITS W-FE,MIN CHEWABLE TABLET 1 TABLET PO (08:31)
[2024-09-24] MEDS: AZITHROMYCIN 250 MG TABLET PO (08:31)
[2024-09-24] MEDS: cefTRIAXone 1 GM in SODIUM CHLORIDE 0.9% IV 50 ML 100 ML IVPB (08:32)
--- NOTE | 2024-09-24 09:39 | P.PNIM_ITS ---
Subjective Date/time seen: 09/24/24 09:39 Review of Systems Review of Systems: All systems reviewed & are unremarkable except as noted in HPI and below Objective Data Vital Signs Vital Signs: Vital Signs - 24 hr 09/23/24 10:00 09/23/24 11:36 09/23/24 12:00 Temperature 97.8 F Pulse Rate 74 77 78 Respiratory Rate 18 Blood Pressure 138/74 Pulse Oximetry 93 Oxygen Delivery Fraction of Inspired Oxygen 09/23/24 14:00 09/23/24 15:30 09/23/24 16:00 Temperature 97.6 F Pulse Rate 91 97 101 H Respiratory Rate 16 Blood Pressure 134/75 Pulse Oximetry 94 Oxygen Delivery Fraction of Inspired Oxygen 09/23/24 18:00 09/23/24 20:00 09/23/24 20:00 Temperature 97.7 F Pulse Rate 105 H 106 H 103 H Respiratory Rate 16 Blood Pressure 128/75 Pulse Oximetry 95 Oxygen Delivery Fraction of Inspired Oxygen 09/23/24 20:31 09/23/24 22:08 09/23/24 23:28 Temperature 98.2 F Pulse Rate 103 H 78 93 Respiratory Rate 20 20 Blood Pressure 125/72 Pulse Oximetry 96 92 Oxygen Delivery Room Air Fraction of Inspired Oxygen 21 09/24/24 00:00 09/24/24 02:35 09/24/24 04:00 Temperature Pulse Rate 82 74 86 Respiratory Rate Blood Pressure Pulse Oximetry Oxygen Delivery Fraction of Inspired Oxygen 09/24/24 04:00 09/24/24 06:00 09/24/24 07:26 Temperature 98 F 97.9 F Pulse Rate 74 76 81 Respiratory Rate 18 16 Blood Pressure 117/74 124/74 Pulse Oximetry 95 95 Oxygen Delivery Fraction of Inspired Oxygen 09/24/24 08:00 Temperature Pulse Rate 91 Respiratory Rate Blood Pressure Pulse Oximetry Oxygen Delivery Fraction of Inspired Oxygen Intake/Output Intake/Output: Intake & Output 09/21/24 09/22/24 09/23/24 09/24/24 23:59 23:59 23:59 23:59 Intake Total 530 710 980 Output Total 400 225 Balance 130 485 980 Meds/Results Medications: Active Medications Generic Name Dose Route Start Last Admin Trade Name Freq PRN Reason Stop Dose Admin Acetaminophen 650 mg 09/22/24 10:51 Acetaminophen 325 Mg Tablet PO Q4H PRN Mild Pain (1-3) or Fever Allopurinol 100 mg 09/22/24 13:50 09/24/24 08:31 Allopurinol 100 Mg Tablet PO 100 mg DAILY LUIS ENRIQUE Administration Azithromycin 250 mg 09/23/24 09:00 09/24/24 08:31 Azithromycin 250 Mg Tablet PO 09/26/24 09:01 250 mg DAILY LUIS ENRIQUE Administration Dextrose 12.5 gm 09/22/24 13:29 Dextrose 50% 25 Gm/50 Ml Syringe IV PUSH PRN PRN Hypoglycemia Protocol Enoxaparin Sodium 40 mg 09/22/24 13:45 09/24/24 08:30 Enoxaparin 40 Mg/0.4 Ml Syringe SUB-Q 40 mg DAILY LUIS ENRIQUE Administration Escitalopram Oxalate 10 mg 09/22/24 13:50 09/24/24 08:31 Escitalopram Oxalate 10 Mg Tablet PO 10 mg DAILY ULIS ENRIQUE Administration Glucagon 1 mg 09/22/24 13:29 Glucagon For Inj 1 Mg Vial IM PRN PRN Hypoglycemia Protocol Glucose 15 gm 09/22/24 13:29 Glucose Oral Gel 15 Gm Of Glucse In 37.5 Gm Tube PO PRN PRN Hypoglycemia Protocol Dextrose 1,000 mls @ 100 mls/hr 09/22/24 13:29 Dextrose 5% 1,000 Ml IVPB PRN PRN Hypoglycemia Protocol Ceftriaxone Sodium 1 gm/ 50 mls @ 100 mls/hr 09/23/24 09:00 09/24/24 08:32 Sodium Chloride IVPB 100 mls/hr DAILY LUIS ENRIQUE Administration Insulin Aspart 2 - 5 units 09/22/24 17:00 09/24/24 07:47 Insulin Aspart (*Bkc) 100 Units/Ml SUB-Q Not Given TIDWM [facility] Protocol Insulin Aspart 1 - 2 units 09/22/24 21:00 09/23/24 21:42 Insulin Aspart (*Bkc) 100 Units/Ml SUB-Q Not Given HS [facility] Protocol Lisinopril 20 mg 09/22/24 13:45 09/24/24 08:32 Lisinopril 20 Mg Tablet PO 20 mg DAILY LUIS ENRIQUE Administration Multivitamins/Minerals 1 tablet 09/22/24 13:50 09/24/24 08:31 Multivits W-Fe,Min Chewable Tablet PO 1 tablet DAILY LUIS ENRIQUE Administration Ondansetron HCl 4 mg 09/22/24 10:51 Ondansetron Inj 4 Mg/2 Ml Vial IV PUSH Q4H PRN Nausea Radiology Results: ITS Impressions Chest X-Ray 09/22/24 07:56 IMPRESSION: 1: NO ACUTE CARDIOPULMONARY DISEASE. Chest CTA 09/22/24 08:23 IMPRESSION: 1. No evidence for pulmonary embolism. 2: Patchy groundglass opacities of the lungs. Differential diagnosis includes atypical pneumonia, mild edema and hypersensitivity pneumonitis. 3: Cholelithiasis. Abdomen Ultrasound 09/23/24 09:27 IMPRESSION: 1: Cholelithiasis with gallbladder wall thickening. Consider cholecystitis. Clinically correlate. Labs Labs: Laboratory Results - last 24 hr 09/23/24 09/23/24 09/23/24 09:04 11:26 15:37 WBC RBC Hgb Hct MCV MCH MCHC RDW Plt Count MPV Immature Gran % (Auto) Neut % (Auto) Lymph % (Auto) [place] % (Auto) Eos % (Auto) Baso % (Auto) Lymph # (Auto) [place] # (Auto) Eos # (Auto) Baso # (Auto) Abs Immat Gran (auto) Absolute Neuts (auto) Absolute Nucleated RBC Nucleated RBC % Sodium Potassium Chloride Carbon Dioxide Anion Gap BUN Creatinine Estim Creat Clear Calc Estimated GFR Glucose POC Capillary Glucose 136 H 122 H Calcium Magnesium Total Bilirubin AST ALT Alkaline Phosphatase Total Protein Albumin Influenza A (RT-PCR) Negative Influenza B (RT-PCR) Negative RSV (RT-PCR) Negative SARS-CoV-2 RNA (RT-PCR) Negative 09/23/24 09/24/24 09/24/24 20:01 07:26 07:28 WBC 11.4 H RBC 4.23 L Hgb 13.2 L Hct 40.5 L MCV 95.7 MCH 31.2 MCHC 32.6 RDW 13.8 Plt Count 199 MPV 9.9 Immature Gran % (Auto) 1.0 H Neut % (Auto) 67.4 Lymph % (Auto) 18.5 [place] % (Auto) 10.8 H Eos % (Auto) 1.8 Baso % (Auto) 0.5 Lymph # (Auto) 2.11 [place] # (Auto) 1.2 H Eos # (Auto) 0.2 Baso # (Auto) 0.1 Abs Immat Gran (auto) 0.11 H Absolute Neuts (auto) 7.7 H Absolute Nucleated RBC 0.000 Nucleated RBC % 0.0 Sodium 134 L Potassium 4.2 Chloride 102 Carbon Dioxide 25 Anion Gap 7 BUN 15 Creatinine 0.96 Estim Creat Clear Calc 73 Estimated GFR > 60 Glucose 122 H POC Capillary Glucose 113 H 130 H Calcium 9.1 Magnesium 2.0 Total Bilirubin 1.2 AST 28 ALT 18 Alkaline Phosphatase 41 Total Protein 6.8 Albumin 3.6 Influenza A (RT-PCR) Influenza B (RT-PCR) RSV (RT-PCR) SARS-CoV-2 RNA (RT-PCR)
--- NOTE | 2024-09-24 10:51 | P.PNCA_ITS ---
Progress Note: A&P Assessment and Plan (1) Chest pain: Code(s): R07.9 - Chest pain, unspecified Status: Acute Assessment and Plan: Atypical chest pain with negative troponin x 3 and EKG showing sinus rhythm with RBBB, no STTW abnormalities to suggest ischemia. MPI showing 1. Small lateral ventricular wall abnormality, partially reversible, consistent with small infarction with Impaired Coronary flow reserve.. 2. Normal left ventricular ejection fraction measuring 78%. Chest pain is now resolved. Troponins are all negative. Treatment for pneumonia has helped. Will treat medically for now until he has completed his pneumonia treatment. Offered medical management versus inpatient catheterization versus outpatient catheterization. At this point he is comfortable with and wishes to pursue outpatient coronary angiogram. This be scheduled within the next couple of weeks. If he has recurrent pain, he should come back to the hospital. I will add aspirin 81 mg p.o. daily as well as low- dose metoprolol 12.5 mg p.o. b.i.d.. Continue lisinopril, statin. (2) Hypertension: Code(s): I10 - Essential (primary) hypertension Status: Acute Assessment and Plan: Above goal. Continue lisinopril and adding low-dose metoprolol (3) Ground glass opacity present on imaging of lung: Code(s): R91.8 - Other nonspecific abnormal finding of lung field Status: Acute Assessment and Plan: Complete treatment for pneumonia per hospitalist (4) Abnormal stress test: Code(s): R94.39 - Abnormal result of other cardiovascular function study Status: Acute Assessment and Plan: Plan as detailed above Subjective Date/time seen: 09/24/24 10:51 Interval history: 74-year-old male with history of hypertension, hyperlipidemia, type 2 diabetes mellitus, and obstructive sleep apnea who presented to the emergency department complaints of chest pain. Date of service 09/24/2024: Feels fine. Has no chest pain, shortness of breath. Breathing better. Stress test performed yesterday as detailed below. MPI: 1. Small lateral ventricular wall abnormality, partially reversible, consistent with small infarction with Impaired Coronary flow reserve.. 2. Normal left ventricular ejection fraction measuring 78%. Review of Systems Review of Systems: All systems reviewed & are unremarkable except as noted in HPI and below Constitutional: Constitutional: Denies body ache(s) Eyes: Eyes: Denies blurry vision ENT: Reports Normal hearing present Cardiovascular: Cardiovascular: Reports chest pain Respiratory: Respiratory: Denies hemoptysis Gastrointestinal: Gastrointestinal: Denies abdominal pain Genitourinary: Genitourinary: Denies hematuria Musculoskeletal: Musculoskeletal: Denies myalgias Integumentary/Breasts: Skin/Breast: Denies dry skin Neurologic: Denies Abnormal speech present Psychiatric: Psychiatric: Denies confusion Endocrine: Endocrine: Denies excessive sweating Hematologic/Lymphatic: Hematologic/Lymphatic: Denies easy bleeding Allergic/Immunologic: Allergic/Immunologic: Denies GI upset with certain foods Exam Narrative: Awake alert oriented. Appears stated age Const: General: comfortable, no acute distress, alert and awake Orientation/consciousness: patient oriented x3 Other: Obese HENMT: Head: normal to inspection Eyes: General: appearance normal, both eyes and all related structures Sclera: sclerae normal Neck: Neck: normal visual inspection, supple and no JVD Carotids: normal carotid upstroke and no bruits Resp: Effort & Inspection: normal respiratory effort Auscultation: clear to auscultation bilaterally Cardio: Rate: regular rate Rhythm: regular rhythm Heart sounds: S1 normal heart sound present, S2 normal heart sound present and no murmurs GI: Auscultation: normal bowel sounds Skin: General skin exam: normal color Neuro: General: patient oriented x3 Speech: normal speech Extrem: General: normal to inspection Other: No edema Psych: Appearance: grossly normal Mental Status: mental status grossly normal Objective Data Vital Signs Vital Signs: Vital Signs - 24 hr 09/23/24 11:36 09/23/24 12:00 09/23/24 14:00 Temperature 36.6 C Pulse Rate 77 78 91 Respiratory Rate 18 Blood Pressure 138/74 Pulse Oximetry 93 Oxygen Delivery Fraction of Inspired Oxygen 09/23/24 15:30 09/23/24 16:00 09/23/24 18:00 Temperature 36.4 C Pulse Rate 97 101 H 105 H Respiratory Rate 16 Blood Pressure 134/75 Pulse Oximetry 94 Oxygen Delivery Fraction of Inspired Oxygen 09/23/24 20:00 09/23/24 20:00 09/23/24 20:31 Temperature 36.5 C Pulse Rate 106 H 103 H 103 H Respiratory Rate 16 20 Blood Pressure 128/75 Pulse Oximetry 95 96 Oxygen Delivery Room Air Fraction of Inspired Oxygen 09/23/24 22:08 09/23/24 23:28 09/24/24 00:00 Temperature 36.8 C Pulse Rate 78 93 82 Respiratory Rate 20 Blood Pressure 125/72 Pulse Oximetry 92 Oxygen Delivery Fraction of Inspired Oxygen 09/24/24 02:35 09/24/24 04:00 09/24/24 04:00 Temperature 36.6 C Pulse Rate 74 86 74 Respiratory Rate 18 Blood Pressure 117/74 Pulse Oximetry 95 Oxygen Delivery Fraction of Inspired Oxygen 09/24/24 06:00 09/24/24 07:26 09/24/24 08:00 Temperature 36.6 C Pulse Rate 76 81 91 Respiratory Rate 16 Blood Pressure 124/74 Pulse Oximetry 95 Oxygen Delivery Fraction of Inspired Oxygen 09/24/24 10:00 Temperature Pulse Rate 88 Respiratory Rate Blood Pressure Pulse Oximetry Oxygen Delivery Fraction of Inspired Oxygen Intake/Output Intake/Output: Intake & Output 09/21/24 09/22/24 09/23/24 09/24/24 23:59 23:59 23:59 23:59 Intake Total 530 710 980 Output Total 400 225 Balance 130 485 980 Meds/Results Medications: Active Medications Generic Name Dose Route Start Last Admin Trade Name Freq PRN Reason Stop Dose Admin Acetaminophen 650 mg 09/22/24 10:51 Acetaminophen 325 Mg Tablet PO Q4H PRN Mild Pain (1-3) or Fever Allopurinol 100 mg 09/22/24 13:50 09/24/24 08:31 Allopurinol 100 Mg Tablet PO 100 mg DAILY LUIS ENRIQUE Administration Atorvastatin Calcium 20 mg 09/24/24 21:00 Atorvastatin 20 Mg Tablet PO QHS LUIS ENRIQUE Azithromycin 250 mg 09/23/24 09:00 09/24/24 08:31 Azithromycin 250 Mg Tablet PO 09/26/24 09:01 250 mg DAILY LUIS ENRIQUE Administration Dextrose 12.5 gm 09/22/24 13:29 Dextrose 50% 25 Gm/50 Ml Syringe IV PUSH PRN PRN Hypoglycemia Protocol Enoxaparin Sodium 40 mg 09/22/24 13:45 09/24/24 08:30 Enoxaparin 40 Mg/0.4 Ml Syringe SUB-Q 40 mg DAILY LUIS ENRIQUE Administration Escitalopram Oxalate 10 mg 09/22/24 13:50 09/24/24 08:31 Escitalopram Oxalate 10 Mg Tablet PO 10 mg DAILY LUIS ENRIQUE Administration Glucagon 1 mg 09/22/24 13:29 Glucagon For Inj 1 Mg Vial IM PRN PRN Hypoglycemia Protocol Glucose 15 gm 09/22/24 13:29 Glucose Oral Gel 15 Gm Of Glucse In 37.5 Gm Tube PO PRN PRN Hypoglycemia Protocol Dextrose 1,000 mls @ 100 mls/hr 09/22/24 13:29 Dextrose 5% 1,000 Ml IVPB PRN PRN Hypoglycemia Protocol Ceftriaxone Sodium 1 gm/ 50 mls @ 100 mls/hr 09/23/24 09:00 09/24/24 08:32 Sodium Chloride IVPB 100 mls/hr DAILY LUIS ENRIQUE Administration Insulin Aspart 2 - 5 units 09/22/24 17:00 09/24/24 07:47 Insulin Aspart (*Bkc) 100 Units/Ml SUB-Q Not Given TIDWM LUIS ENRIQUE Protocol Insulin Aspart 1 - 2 units 09/22/24 21:00 09/23/24 21:42 Insulin Aspart (*Bkc) 100 Units/Ml SUB-Q Not Given HS LUIS ENRIQUE Protocol Lisinopril 20 mg 09/22/24 13:45 09/24/24 08:32 Lisinopril 20 Mg Tablet PO 20 mg DAILY LUIS ENRIQUE Administration Multivitamins/Minerals 1 tablet 09/22/24 13:50 09/24/24 08:31 Multivits W-Fe,Min Chewable Tablet PO 1 tablet DAILY LUIS ENRIQUE Administration Ondansetron HCl 4 mg 09/22/24 10:51 Ondansetron Inj 4 Mg/2 Ml Vial IV PUSH Q4H PRN Nausea Radiology Results: ITS Impressions Chest X-Ray 09/22/24 07:56 IMPRESSION: 1: NO ACUTE CARDIOPULMONARY DISEASE. Chest CTA 09/22/24 08:23 IMPRESSION: 1. No evidence for pulmonary embolism. 2: Patchy groundglass opacities of the lungs. Differential diagnosis includes atypical pneumonia, mild edema and hypersensitivity pneumonitis. 3: Cholelithiasis. Abdomen Ultrasound 09/23/24 09:27 IMPRESSION: 1: Cholelithiasis with gallbladder wall thickening. Consider cholecystitis. Clinically correlate. Lexiscan Stress Test 09/24/24 09:38 IMPRESSION: 1. Small lateral ventricular wall abnormality, partially reversible, consistent with small infarction with Impaired Coronary flow reserve.. 2. Normal left ventricular ejection fraction measuring 78%. Labs Labs: Laboratory Results - last 24 hr 09/23/24 09/23/24 09/23/24 11:26 15:37 20:01 WBC RBC Hgb Hct MCV MCH MCHC RDW Plt Count MPV Immature Gran % (Auto) Neut % (Auto) Lymph % (Auto) [place] % (Auto) Eos % (Auto) Baso % (Auto) Lymph # (Auto) [place] # (Auto) Eos # (Auto) Baso # (Auto) Abs Immat Gran (auto) Absolute Neuts (auto) Absolute Nucleated RBC Nucleated RBC % Sodium Potassium Chloride Carbon Dioxide Anion Gap BUN Creatinine Estim Creat Clear Calc Estimated GFR Glucose POC Capillary Glucose 136 H 122 H 113 H Calcium Magnesium Total Bilirubin AST ALT Alkaline Phosphatase Total Protein Albumin 09/24/24 09/24/24 07:26 07:28 WBC 11.4 H RBC 4.23 L Hgb 13.2 L Hct 40.5 L MCV 95.7 MCH 31.2 MCHC 32.6 RDW 13.8 Plt Count 199 MPV 9.9 Immature Gran % (Auto) 1.0 H Neut % (Auto) 67.4 Lymph % (Auto) 18.5 [place] % (Auto) 10.8 H Eos % (Auto) 1.8 Baso % (Auto) 0.5 Lymph # (Auto) 2.11 [place] # (Auto) 1.2 H Eos # (Auto) 0.2 Baso # (Auto) 0.1 Abs Immat Gran (auto) 0.11 H Absolute Neuts (auto) 7.7 H Absolute Nucleated RBC 0.000 Nucleated RBC % 0.0 Sodium 134 L Potassium 4.2 Chloride 102 Carbon Dioxide 25 Anion Gap 7 BUN 15 Creatinine 0.96 Estim Creat Clear Calc 73 Estimated GFR > 60 Glucose 122 H POC Capillary Glucose 130 H Calcium 9.1 Magnesium 2.0 Total Bilirubin 1.2 AST 28 ALT 18 Alkaline Phosphatase 41 Total Protein 6.8 Albumin 3.6
[2024-09-24] MEDS: ASPIRIN 81 MG ENTERIC TABLET PO (11:22)
[2024-09-24] MEDS: METOPROLOL TARTRATE 12.5 MG TABLET PO (11:23)
--- NOTE | 2024-09-24 11:40 | P.DS_ITS ---
DS: Admitting Diagnosis Discharge Date 09/24/2024 Admitting Diagnosis chest pain DS: Discharge Diagnosis Discharge Diagnosis (1) Myocardial infarct: Code(s): I21.9 - Acute myocardial infarction, unspecified Status: Acute (2) Hypertension: Code(s): I10 - Essential (primary) hypertension Status: Acute (3) Type 2 diabetes mellitus: Code(s): E11.9 - Type 2 diabetes mellitus without complications Status: Acute (4) Ground glass opacity present on imaging of lung: Code(s): R91.8 - Other nonspecific abnormal finding of lung field Status: Acute (5) Cholelithiasis: Code(s): K80.20 - Calculus of gallbladder without cholecystitis without obstruction Status: Acute (6) Hypertriglyceridemia: Code(s): E78.1 - Pure hyperglyceridemia Status: Acute DS: Summary Hospital Course Hospital Course: Patient is a 74 year old male that went to the ER with chest pain and nausea. In the ED: Blood pressure on arrival was 150/86; the rest of his vital signs were stable. Labs were significant for a D-dimer of 0.83, proBNP 38, troponin less than 0.012. EKG showed sinus rhythm with right bundle-branch block. Chest CTA was negative for pulmonary embolism but showed patchy ground-glass opacities (atypical pneumonia versus mild edema versus hypersensitivity pneumonitis) and cholelithiasis. He was given a dose of azithromycin ceftriaxone and is being admitted in this setting to rule out acute coronary syndrome. Echocardiogram on 09/22/24 showed: Summary 1. There is normal biventricular size and systolic function. 2. There are no significant valvular abnormalities. 3. The aortic root at the level of the sinus of Valsalva is dilated measuring 4.2 cm in diameter. Left Ventricle The left ventricle is normal in size and systolic function. The left ventricular ejection fraction is visually estimated to be 60-65%. There are no regional wall motion abnormalities. Abdominal US on 09/23/24: FINDINGS: The pancreas is normal without focal mass or pancreatic ductal d ilation. Liver echotexture is increased, consistent with fatty infiltration. There is normal directional flow in the portal vein. Incidental note is made of cysts in the right kidney. Gallbladder contains stones with gallbladder wall thickening. No pericholecystic fluid or biliary dilatation. Common bile duct measures 5 mm. No sonographic Calhoun's sign. IMPRESSION: 1: Cholelithiasis with gallbladder wall thickening. Consider cholecystitis. Clinically correlate. Anna scan 09/24/24: FINDINGS: There is a small lateral ventricular wall perfusion abnormality which is partially reversible.. There is no segmental wall motion abnormality. Left ventricular ejection fraction measures 78%. IMPRESSION: 1. Small lateral ventricular wall abnormality, partially reversible, consistent with small infarction with Impaired Coronary flow reserve.. 2. Normal left ventricular ejection fraction measuring 78%. Patient started on Aspirin 81 mg PO daily and Metoprolol Tartrate 12.5 mg PO q 12. Patient to have a cardiac cath outpatient and follow up with cardiology. Patient received IV antibiotics for pneumonia and transitioned to oral antibiotics. Surgery recommended patient eat a low fat diet and no indication for surgery at this point. Triglycerides 347, start Atorvastatin 20 mg PO qhs. Status at Discharge Functional status at discharge: independent ambulation Time Spent with Patient Time attestation: Total time spent providing and/or coordinating discharge services: Time spent: Greater than 30 minutes Exam Const: General: comfortable and no acute distress Resp: Effort & Inspection: normal respiratory effort Auscultation: clear to auscultation bilaterally Cardio: Rate: regular rate Rhythm: regular rhythm Heart sounds: no murmurs GI: GI Palp: Yes Soft to palpation Auscultation: normal bowel sounds Extrem: General: no pedal edema Psych: Mental Status: mental status grossly normal Affect: normal affect DS: Data Data Completed and Pending Labs on day of discharge: Labs from last 24 hours 09/24/24 09/24/24 09/23/24 07:28 07:26 20:01 WBC 11.4 H RBC 4.23 L Hgb 13.2 L Hct 40.5 L MCV 95.7 MCH 31.2 MCHC 32.6 RDW 13.8 Plt Count 199 MPV 9.9 Immature Gran % (Auto) 1.0 H Neut % (Auto) 67.4 Lymph % (Auto) 18.5 [place] % (Auto) 10.8 H Eos % (Auto) 1.8 Baso % (Auto) 0.5 Lymph # (Auto) 2.11 [place] # (Auto) 1.2 H Eos # (Auto) 0.2 Baso # (Auto) 0.1 Abs Immat Gran (auto) 0.11 H Absolute Neuts (auto) 7.7 H Absolute Nucleated RBC 0.000 Nucleated RBC % 0.0 Sodium 134 L Potassium 4.2 Chloride 102 Carbon Dioxide 25 Anion Gap 7 BUN 15 Creatinine 0.96 Estim Creat Clear Calc 73 Estimated GFR > 60 Glucose 122 H POC Capillary Glucose 130 H 113 H Calcium 9.1 Magnesium 2.0 Total Bilirubin 1.2 AST 28 ALT 18 Alkaline Phosphatase 41 Total Protein 6.8 Albumin 3.6 09/23/24 15:37 WBC RBC Hgb Hct MCV MCH MCHC RDW Plt Count MPV Immature Gran % (Auto) Neut % (Auto) Lymph % (Auto) [place] % (Auto) Eos % (Auto) Baso % (Auto) Lymph # (Auto) [place] # (Auto) Eos # (Auto) Baso # (Auto) Abs Immat Gran (auto) Absolute Neuts (auto) Absolute Nucleated RBC Nucleated RBC % Sodium Potassium Chloride Carbon Dioxide Anion Gap BUN Creatinine Estim Creat Clear Calc Estimated GFR Glucose POC Capillary Glucose 122 H Calcium Magnesium Total Bilirubin AST ALT Alkaline Phosphatase Total Protein Albumin Discharge Plan Discharge Attending physician on discharge: Vania Prabhakar Consulting providers: Jose Dubois; Daniel Jin; Karen Iyer Discharging Clinician: Teressa Otto Anticipated Discharge Date/Time: 09/24/24 11:41 Patient Disposition: Home Activity: may shower and as tolerated Diet: heart healthy and diabetic Discharge Instructions: * Recommend low-fat diet. If you develop any right upper quadrant pain, feel free to call the general surgery office to set up an outpatient appointment at to discuss options regarding gall bladder symptoms. * Follow up with Cardiology for outpatient cardiac cath. * Call [phone] if you develop chest pain. * Report to provider if you develop shortness of breath or palpitations. * Take medications as prescribed. * Complete all doses of antibiotics. Thank you for entrusting [facility] with your healthcare! Patient Instructions: Antibiotic Form, Metoprolol (By mouth), Atorvastatin (By mouth), Low Fat Diet (DC), Heart Healthy Diet (DC), Community Acquired Pneumonia (DC), Hyperlipidemia (DC) Patient Language: Frisian Stand Alone Forms: General Discharge Information Follow-up/Referrals: Daniel Jin MD [Physician] - 1 Week (Needs a cardiac cath.) Claudio Holley MD [Primary Care Provider] - 1 Week Discharge Medications: New atorvastatin 20 mg Tablet 20 mg PO QHS Qty: 30 1RF aspirin 81 mg Tablet,Delayed Release (Dr/Ec) 81 mg PO QAM Qty: 30 0RF metoprolol tartrate 25 mg tablet 12.5 mg PO BID Qty: 60 0RF lisinopril 20 mg tablet 20 mg PO DAILY Qty: 30 0RF azithromycin [Zithromax] 250 mg Tablet 250 mg PO DAILY Qty: 2 0RF Rx Instructions: Start on 09/25/24 amoxicillin-pot clavulanate 875-125 mg tablet 1 tablet PO Q12H Qty: 4 0RF Rx Instructions: Start on 09/25/24 Continued metformin 1,000 mg tablet 1,000 mg PO BID Centrum Adult 50 Plus 80 mcg tablet,chewable 1 tablet PO DAILY allopurinol 100 mg tablet 100 mg PO DAILY escitalopram oxalate 10 mg tablet 10 mg PO DAILY Discontinued lisinopril 10 mg tablet 10 mg PO DAILY Date of admission: 09/23/24 14:57 Primary Care Provider: Claudio Holley Admitting Provider: Vania Prabhakar Attending physician on admission: Vania Prabhakar Condition: Stable Hospitalist MIPS Heart Failure (Exclusion) Patient has history of Heart Transplant or Left Ventricular Assistive Device?: No IF YES, STOP HERE Heart Failure (Qualifier) Patient has current or prior documentation of LVEF less than or equal to 40%, or mod/servere depressed LVSF?: No IF NO, STOP HERE
--- NOTE | 2024-09-25 07:20 | P.CDI_ITS ---
<Statement entered by Teressa Otto, TIME STAMP ASSEMBLER - 09/25/24 09:02> Community-acquired pneumonia CDI Query Clarification Request On the discharge note, it is documented that the chest CTA showed patchy ground glass opacities with a differential of pneumonia, mild edema, or hypersensitivity pneumonitis. Could you please clarify dx regarding ground glass opacities or if a new diagnosis should be added. * atypical pneumonia * pulmonary edema * hypersensitivity pneumonitis * other (please specify) * unable to determine The medical chart reflects the following: (4) Ground glass opacity present on imaging of lung: Code(s): R91.8 - Other nonspecific abnormal finding of lung field Status: Acute (5) Cholelithiasis: Code(s): K80.20 - Calculus of gallbladder without cholecystitis without obstruction Status: Acute (6) Hypertriglyceridemia: Code(s): E78.1 - Pure hyperglyceridemia Status: Acute DS: Summary Hospital Course Hospital Course: Patient is a 74 year old male that went to the ER with chest pain and nausea. In the ED: Blood pressure on arrival was 150/86; the rest of his vital signs were stable. Labs were significant for a D-dimer of 0.83, proBNP 38, troponin less than 0.012. EKG showed sinus rhythm with right bundle-branch block. Chest CTA was negative for pulmonary embolism but showed patchy ground-glass opacities (atypical pneumonia versus mild edema versus hypersensitivity pneumonitis) and cholelithiasis. He was given a dose of azithromycin ceftriaxone and is being admitted in this setting to rule out acute coronary syndrome. Echocardiogram on 09/22/24 showed: Summary 1. There is normal biventricular size and systolic function. 2. There are no significant valvular abnormalities. 3. The aortic root at the level of the sinus of Valsalva is dilated measuring 4.2 cm in diameter. Left Ventricle The left ventricle is normal in size and systolic function. The left ventricular ejection fraction is visually estimated to be 60-65%. There are no regional wall motion abnormalities. Abdominal US on 09/23/24: FINDINGS: The pancreas is normal without focal mass or pancreatic ductal dilation. Liver echotexture is increased, consistent with fatty infiltration. There is normal directional flow in the portal vein. Incidental note is made of cysts in the right kidney. Gallbladder contains stones with gallbladder wall thickening. No pericholecystic fluid or biliary dilatation. Common bile duct measures 5 mm. No sonographic Calhoun's sign. IMPRESSION: 1: Cholelithiasis with gallbladder wall thickening. Consider cholecystitis. Clinically correlate. Anna scan 09/24/24: FINDINGS: There is a small lateral ventricular wall perfusion abnormality which is partially reversible.. There is no segmental wall motion abnormality. Left ventricular ejection fraction measures 78%. IMPRESSION: 1. Small lateral ventricular wall abnormality, partially reversible, consistent with small infarction with Impaired Coronary flow reserve.. 2. Normal left ventricular ejection fraction measuring 78%. Cardiology documented: Chest pain is now resolved. Troponins are all negative. Treatment for pneumonia has helped. Will treat medically for now until he has completed his pneumonia treatment. Offered medical management versus inpatient catheterization versus outpatient catheterization. At this point he is comfortable with and wishes to pursue outpatient coronary angiogram. This be scheduled within the next couple of weeks. If he has recurrent pain, he should come back to the hospital. I will add aspirin 81 mg p.o. daily as well as low- dose metoprolol 12.5 mg p.o. b.i.d.. Continue lisinopril, statin.
== END 2024-09-24 12:28 | disposition home or self-care (01) | DRG 195 ==
LOC: ANHED 10:47 → ANHIMU 11:34
PROVIDERS: Physician Assistant; Student in an Organized Health Care Education/Training Program; Admitting Provider Family Medicine; Emergency Provider Student in an Organized Health Care Education/Training Program; PCP Family Medicine; Visit Provider Nurse Practitioner Family
DX: J18.9 Pneumonia, unspecified organism (principal); R07.89 Other chest pain; K80.20 Calculus of gallbladder without cholecystitis without obstruction; R91.8 Other nonspecific abnormal finding of lung field; I10 Essential (primary) hypertension; E11.9 Type 2 diabetes mellitus without complications; E78.5 Hyperlipidemia, unspecified; G47.33 Obstructive sleep apnea (adult) (pediatric); K21.9 Gastro-esophageal reflux disease without esophagitis; N40.0 Benign prostatic hyperplasia without lower urinary tract symptoms; E78.1 Pure hyperglyceridemia; E66.9 Obesity, unspecified; Z68.35 Body mass index [BMI] 35.0-35.9, adult; Z87.891 Personal history of nicotine dependence
CPT/HCPCS: 36415; 71046; 71275; 76705; 78452; 80048; 80053; 80061; 82948; 83036; 83690; 83735; 83880; 84145; 84484; 85025; 85027; 85380; 85610; 85730; 87637; 93005; 93017; 96365; 96375; 99285; A9270; A9502; C8929; G0378; J0696; J1650; J2785; Q9957; Q9967

== ENCOUNTER 2024-10-09 03:05 | Day surgery (SDC) | payer MEDICARE, SELFPAY ==
[2024-10-09] VITALS (14 sets, daily range): BP systolic 94–114; BP diastolic 61–84; PULSE 71–101; RESP 13–20; TEMP 36.4; O2SAT 91–99; BMI 35.2
--- OUTSIDE RECORDS SUMMARY | 2024-10-09 03:07 | XMS_ITS | Clinical Summary ---
Author Organization [facility] Address [address] [place] [id number] Care Team Providers Care Manager Financial Systems Name Role Phone Unavailable Primary Care Provider [...]
[2024-10-09 12:20] LABS: Hematocrit 45.2 % (42.0-52.0); Hemoglobin 14.8 g/dL (14.0-18.0); Immature Granulocyte Percent A 0.9 % (0-0.5); Lymphocytes Absolute Auto 2.86 K/mm3 (0.9-3.2); Mean Corpuscular HGB Conc 32.7 g/dl (32-36); Mean Corpuscular Hemoglobin 31.1 pg (26-34); Mean Corpuscular Volume 95.0 fl (80-100); Nucleated Red Blood Cells Absolute Auto 0.000 K/mm3 (0.0-0.012); Nucleated Red Blood Cells Perc 0.0 % (0.0-0.2); Platelet Count Result 323 k/mm3 (150-375); Red Blood Count 4.76 M/mm3 (4.6-6.20); White Blood Count 9.7 K/mm3 (4.5-10.0)
--- NOTE | 2024-10-09 12:40 | WPDHPUPDATE1 ---
History and Physical Update Update Date/Time: 10/09/24 12:40 History and Physical has been reviewed, including an updated exam of the patient. There are NO changes in the patient's condition. Risks, benefits, and alternatives have been discussed and questions answered. Patient agrees to proceed with procedure.
--- NOTE | 2024-10-09 12:41 | P.SEDATION_ITS ---
Moderate Sedation Note-Pt Data Patient Data Allergies Allergy/AdvReac Type Severity Reaction Status Date / Time No Known Drug Allergies Allergy Unknown Other Verified 10/08/24 13:31 Cultivated Oat Pollen Allergy Unknown Rash Uncoded 10/08/24 13:31 Home Medications ?Medication ?Instructions ?Recorded ?Confirmed ?Type metformin 1,000 mg tablet 1,000 mg PO BID 12/11/23 10/08/24 History allopurinol 100 mg tablet 100 mg PO DAILY 02/04/24 10/08/24 History escitalopram oxalate 10 mg tablet 10 mg PO DAILY 02/04/24 10/08/24 History multivitamin with minerals-folic 1 tablet PO DAILY 09/22/24 10/08/24 History acid 80 mcg chewable tablet (Centrum Adult 50 Plus) aspirin 81 mg tablet,delayed 81 mg PO QAM #30 tabs 09/24/24 10/08/24 Rx release lisinopril 20 mg tablet 20 mg PO DAILY #30 tabs 09/24/24 10/08/24 Rx fenofibrate 54 mg tablet 54 mg PO DAILY 10/08/24 10/08/24 History Current Medications: Active Medications Sodium Chloride (Normal Saline Iv) 500 mls @ 100 mls/hr IV CONT .Q5H LUIS ENRIQUE Sedation/Anesthesia: No previous sedation/anesthesia problems (including family history). [facility] Past Medical History Medical History (Updated 09/24/24 @ 13:06 by Teressa Otto APRN) Type 2 diabetes mellitus Gout Kidney stones Benign prostatic hyperplasia Gastroesophageal reflux disease Diverticulitis Obstructive sleep apnea does not use CPAP Allergy to dust Pollen allergies Arthritis Hyperlipidemia Hypertension Surgical History Surgical History History of colonoscopy (screening); Dr De Leon; 02/21/24 Family History Family History Other Unknown family medical history Social History Social History (Updated 09/22/24 @ 13:28 by Portia Mcdonald PA-C) Social History: Surrogate medical decision maker: Trina Sanders, spouse. Code status: Full code. Smoking status: Former smoker Tobacco type: cigars Smoking end date: 09/02/74 Alcohol intake: current Drinks per week: 5 Alcohol use details: beer Substance use: current Substance use type: does not use Do You Feel Safe in your Home?: Yes Lack of Transportation: No Lack of Food: Never True Current Housing: I Have Housing Concerned About Future Housing: No Difficulty Paying Gas/Electric Bills: No Difficulty Paying for Meds: No Currently Unemployed: No Education: Bachelor's Degree Difficulty w/ Childcare or Family Care: No Living arrangements: with family Additional living arrangements comments: The patient lives with his in [place]. Spiritual care concerns: No Mod Sed Physical Exam Physical Exam Pre Procedural Exam: Normal: Lungs, Heart Size, Heart Rate and Heart Rhythm Hours since solid foods: 16 Hours since liquid intake: 12 Mallampati Classification: class III Internal Medicine - PN: Obj Da Vital Signs Vital Signs: Vital Signs - 24 hr 10/09/24 12:20 Temperature 36.4 C Pulse Rate 101 H Respiratory Rate 18 Blood Pressure 114/84 Pulse Oximetry 97 Meds/Results Medications: Active Medications Generic Name Dose Route Start Last Admin Trade Name Freq PRN Reason Stop Dose Admin Sodium Chloride 500 mls @ 100 mls/hr 10/09/24 11:30 Normal Saline Iv IV CONT .Q5H LUIS ENRIQUE Labs 10/09/24 12:10 10/09/24 12:10 Labs: Laboratory Results - last 24 hr 10/09/24 12:10 WBC 9.7 RBC 4.76 Hgb 14.8 Hct 45.2 MCV 95.0 MCH 31.1 MCHC 32.7 RDW 13.8 Plt Count 323 D MPV 9.8 Immature Gran % (Auto) 0.9 H Neut % (Auto) 57.2 Lymph % (Auto) 29.4 Grimes % (Auto) 7.5 Eos % (Auto) 4.0 Baso % (Auto) 1.0 Lymph # (Auto) 2.86 Grimes # (Auto) 0.7 H Eos # (Auto) 0.4 H Baso # (Auto) 0.1 Abs Immat Gran (auto) 0.09 H Absolute Neuts (auto) 5.6 Absolute Nucleated RBC 0.000 Nucleated RBC % 0.0 ASA Classification/Sedation ASA Classification/Sedation ASA Class: III Emergent: No Risks: Risks, benefits and alternatives explained and patient/family accepted plan for sedation. Patient re-evaluated immediately prior to sedation.
[2024-10-09 12:45] LABS: Anion Gap 11 mmol/L (4-12); Blood Urea Nitrogen 20 mg/dL (9-20); Calcium 9.9 mg/dL (8.4-10.2); Carbon Dioxide 23 mmol/L (22-30); Chloride 103 mmol/L (98-107); Estimated CRCL calculation 64 ml/min; Estimated Glomerular Filt Rate > 60; Glucose 107 mg/dL (65-110); Potassium 4.4 mmol/L (3.4-5.0); Sodium 137 mmol/L (137-145)
--- NOTE | 2024-10-09 13:27 | WPDCARDPROC ---
Cardiac Cath Procedure Note Date of procedure:: 10/09/24 Performing physician:: CATHETERIZATION LABORATORY REPORT Procedure Date: 10/09/2024 Referring Physician: Dr. Perdue Anesthesia: Versed and Fentanyl were ordered and given in my presence at 1307, procedure ended at 1320. Supervision of nurse, Fannie Tejada monitored moderate sedation with 2mg Versed and 100mcg Fentanyl was provided for 13 minutes. Pre-op Diagnosis: Abnormal stress test Post-op Diagnosis: Abnormal stress test Procedure(s): Left heart catheterization with coronary angiography Access Site: Right radial artery Brief History and Clinical Indications: 74-year-old man with history of TIA presented with chest discomfort found to have abnormal stress test for which a outpatient cardiac catheterization recommended. All risks, benefits and alternatives to left heart catheterization with or without percutaneous coronary intervention was discussed at length with the patient. Risk of complications including but not limited to bleeding, infection, arrhythmia, stroke, worsening kidney function, blood loss, groin hematoma, limb loss, emergency coronary artery bypass grafting, and even were discussed with the patient and all questions were answered. The patient understood and wished to proceed. Time out called, patient name, date of , medical record number, allergies, procedure performed, identify Blender Laborer, patient and staff member concurred with accurate data, procedure carried on. Findings: LEFT HEART CATHETERIZATION FINDINGS: 1. Left main: The left main coronary artery is long and widely patent without any significant obstructive disease. 2. Left anterior descending: The LAD and the diagonal branches have mild luminal irregularities without any significant obstructive angiographic disease. Distally the LAD becomes a very small caliber vessel. 3. Left circumflex: The left circumflex artery and the main marginal branches have mild luminal irregularities without any significant obstructive angiographic disease. Distally the left circumflex becomes a very small caliber vessel. 4. Right coronary artery: The RCA is a very large dominant vessel with diffuse 10-20% stenosis. This vessel size is likely 7 mm in diameter. 5. Left ventricle: A. End-diastolic pressure 19 mmHg. B. LV gram deferred. C. No significant gradient across aortic valve on catheter pullback. 6. Opening AO pressure 90/57 and closing AO pressure 114/68 Description of Procedure: Informed consent signed and placed in the chart. Patient transferred to ballistics laboratory gunsmith room. Prepped and draped in usual sterile fashion. 2% lidocaine injected subcutaneously in right wrist area. 22-gauge venipuncture catheter used to access the right radial artery with the Seldinger technique. 6-FR slender sheath placed in right radial artery. Nitroglycerin 200mcg, Verapamil 2.5mg, and Heparin 5000U was given intraarterial through the sheath. J wire advanced under fluoroscopy 5F Ultra diagnostic catheter engaged Left Main Coronary Artery. 5F Ultra diagnostic catheter engaged Right Coronary Artery Multiple orthogonal angiogram obtained and reviewed 5F Ultra diagnostic catheter was guided across the aortic valve on J wire to obtain LVEDP, LV angiogram deferred. Hemostasis was achieved by application of TR band. Assessment: Mild CAD. Post Operative Condition: Stable No significant blood loss Disposition: Home Plan: The patient will be monitored in the recovery area. Continue aggressive medical therapy and risk factor modification. Daniel Jin Interventional Cardiology
== END 2024-10-09 17:17 | disposition home or self-care (01) ==
PROVIDERS: PCP Family Medicine; Visit Provider Internal Medicine
PROC: 4A023N7 Measurement of Cardiac Sampling and Pressure, Left Heart, Percutaneous Approach (ICD-10-PCS; CPT 93452; principal; 2024-10-09 13:00)
DX: I25.10 Atherosclerotic heart disease of native coronary artery without angina pectoris (principal); R94.39 Abnormal result of other cardiovascular function study; Z87.891 Personal history of nicotine dependence
CPT/HCPCS: 36415; 80048; 85025; 93458; C1769; C1887; C1894; J1644; J2003; J2250; J2305; J3010; J7040